=== PATIENT | male | born 1945 | race Caucasian/White ===

== ENCOUNTER → 2018-03-03 | Outpatient (CLI) | payer MEDICARE ==
[2018-03-03 08:46] LABS: Basophils % (A) 0 %; Eosinophils # (A) 0.2 k/uL (0-0.7); Eosinophils % (A) 2 %; HCT 53.6 % (39.0-53.0); Lymphocytes # (A) 1.8 k/uL (1.0-4.8); Lymphocytes % (A) 22 %; MCH 30.1 pg (25.0-35.0); MCHC 31.6 g/dL (31.0-37.0); MCV 95.2 fL (80.0-100.0); Mean Platelet Volume 6.7; Monocytes # (A) 0.7 k/uL (0-1.0); Monocytes % (A) 9 %; Neutrophils # (A) 5.1 k/uL (1.3-7.7); Neutrophils % (A) 63 %; Platelet Count 192 k/uL (150-450); RBC 5.63 m/uL (4.30-5.90); WBC 8.1 k/uL (3.8-10.6)
[2018-03-03 08:57] LABS: ALT 47 U/L (21-72); AST 51 U/L (17-59); Albumin 4.5 g/dL (3.5-5.0); Alkaline Phosphatase 92 U/L (38-126); Anion Gap 9 mmol/L; Blood Urea Nitrogen 11 mg/dL (9-20); Calcium 9.7 mg/dL (8.4-10.2); Carbon Dioxide 27 mmol/L (22-30); Chloride 104 mmol/L (98-107); Glucose 94 mg/dL (74-99); Sodium 140 mmol/L (137-145); Total Bilirubin 1.2 mg/dL (0.2-1.3); Total Protein 8.1 g/dL (6.3-8.2)
[2018-03-03 09:09] LABS: Potassium 4.7 mmol/L (3.5-5.1)
== END ==
LOC: LABWHC1 08:23
PROVIDERS: ATTEND Family Medicine
DX: I48.91 Unspecified atrial fibrillation (principal); E55.9 Vitamin D deficiency, unspecified
CPT/HCPCS: 36415; 80053; 82306; 84443; 85025

== ENCOUNTER → 2018-03-04 | Outpatient (CLI) | payer MEDICARE ==
[2018-03-04 15:06] LABS: T4, Free (Free Thyroxine) 1.48 ng/dL (0.78-2.19)
== END ==
LOC: LABWHC1 13:36
PROVIDERS: ATTEND Internal Medicine Cardiovascular Disease
DX: I48.91 Unspecified atrial fibrillation (principal)
CPT/HCPCS: 36415; 84439; 84481

== ENCOUNTER 2018-03-24 07:45 | Day surgery (SDC) | payer MEDICARE ==
[2018-03-24] MEDS ORDERED: ALPRAZolam 0.25 MG TAB PO PRN (08:14)
[2018-03-24] MEDS ORDERED: NITROGLYCERIN SL TABS 0.4 MG TAB SUBLINGUAL PRN (08:14)
[2018-03-24] MEDS ORDERED: ASPIRIN 325 MG TAB PO STA (08:14)
[2018-03-24] MEDS ORDERED: SODIUM CHLORIDE 0.9% 1,000 ML in EMPTY BAG 1 BAG IV ONE (08:14)
[2018-03-24] MEDS ORDERED: fentaNYL (PF) 50 MCG/ML 2 ML AMP ONE (09:12)
[2018-03-24] MEDS ORDERED: LIDOCAINE 1% INJ 10MG/ML (20 ML MDV) ONE (09:12)
[2018-03-24] MEDS ORDERED: MIDAZOLAM 2 MG/2 ML VIAL ONE (09:12)
[2018-03-24] MEDS ORDERED: IV FLUID CONTINUATION 900 ML IV ONE (09:12)
[2018-03-24] MEDS: MIDAZOLAM 2 MG/2 ML VIAL IVP ONE ×2 (09:40→09:46)
[2018-03-24] MEDS ORDERED: fentaNYL (PF) 50 MCG/ML 2 ML AMP IVP ONE (09:40)
[2018-03-24] MEDS ORDERED: LIDOCAINE 1% (PF) 10MG/ML VIAL SQ ONE (09:45)
[2018-03-24] MEDS ORDERED: IOPAMIDOL-370 50ML BTL INJ ONE (10:10)
[2018-03-24] MEDS ORDERED: IOPAMIDOL-370 125ML BTL INJ ONE (10:12)
[2018-03-24] MEDS ORDERED: RX INFO: IV CONTRAST WAS GIVEN 1 EACH MISC MISCELLANE PRN (10:24)
[2018-03-24] MEDS ORDERED: SODIUM CHLORIDE 0.9% 1,000 ML IV SCH (10:30)
--- NOTE | 2018-03-24 10:33 | CC ---
CARDIAC CATHETERIZATION REPORT INDICATION: Shortness of breath with abnormal stress test. PROCEDURE NOTE: After obtaining informed consent, left heart catheterization and coronary angiogram are performed via the right femoral artery. The left coronary artery was engaged using a size 5 Neil catheter and the right coronary artery was using standard Neil catheters. We used a Glidewire to take the catheters across the infrarenal aorta. An aortogram was performed to assess the ascending aorta. Patient received moderate conscious sedation. Total sedation time was 26 minutes. FINDINGS: 1. HEMODYNAMICS: Left ventricular end-diastolic pressure is 8 to 10 mm. There is no significant gradient across the aortic valve. 2. LEFT VENTRICULOGRAM: Left ventriculogram is not performed. 3. ANGIOGRAPHIC DATA: 4. Left main coronary artery: Left main coronary artery is a normal-sized vessel and is free of stenosis. Divides into left anterior descending coronary artery and circumflex coronary artery. LAD and its branches, circumflex coronary artery and its branches are free of significant stenosis. Right coronary artery is a large dominant vessel that has an eccentric and subselective images were obtained and it did not show significant obstructive CAD. 5. An aortogram was performed and it shows that the ascending aorta is aneurysmally dilated. The maximum dimension is around 4.5 cm. CONCLUSIONS: 1. Normal coronary arteries. 2. Ascending aortic aneurysm. PLAN: The patient will continue with the anticoagulant. He will undergo a CT scan of the chest to accurately assess the ascending aorta. MMETIENNEL / KADIEN: [id number] /
[2018-03-24 11:13] VITALS: RESP 18
[2018-03-24 16:24] VITALS: BP 130/81; PULSE 74; TEMP 98.3
== END 2018-03-24 18:25 | disposition home or self-care (01) ==
LOC: CATHCVL 07:45 → 3OBS 10:20 → CATHCVL 18:25
PROVIDERS: ATTEND Internal Medicine Cardiovascular Disease
DX: I71.2 Thoracic aortic aneurysm, without rupture (principal); R94.39 Abnormal result of other cardiovascular function study; I48.2 Chronic atrial fibrillation; Z79.01 Long term (current) use of anticoagulants; Z79.899 Other long term (current) drug therapy; Z88.0 Allergy status to penicillin
CPT/HCPCS: 93458; C1769 ×3; C1894; J2250; J3010; J2001; Q9967 ×2

== ENCOUNTER → 2018-04-07 | Outpatient (CLI) | payer MEDICARE ==
[2018-04-07 13:27] LABS: Anion Gap 10 mmol/L; Blood Urea Nitrogen 12 mg/dL (9-20); Carbon Dioxide 29 mmol/L (22-30); Chloride 104 mmol/L (98-107); Potassium 5.2 mmol/L (3.5-5.1); Sodium 143 mmol/L (137-145)
[2018-04-07 13:31] LABS: HCT 51.9 % (39.0-53.0); HGB 16.6 gm/dL (13.0-17.5); MCH 30.9 pg (25.0-35.0); MCV 96.5 fL (80.0-100.0); Mean Platelet Volume 6.8; Platelet Count 215 k/uL (150-450); RBC 5.38 m/uL (4.30-5.90); RDW 13.1 % (11.5-15.5); WBC 7.6 k/uL (3.8-10.6)
== END | disposition home or self-care (01) ==
LOC: LABPAT 12:20
PROVIDERS: ATTEND Internal Medicine Cardiovascular Disease
DX: Z01.812 Encounter for preprocedural laboratory examination (principal); R06.02 Shortness of breath; I48.2 Chronic atrial fibrillation
CPT/HCPCS: 36415; 80051; 82565; 84520; 85027

== ENCOUNTER → 2018-04-14 | Outpatient (CLI) | payer MEDICARE ==
--- NOTE | 2018-04-15 08:30 | CT ---
EXAMINATION TYPE: CT angio thor/abd pel aorta DATE OF EXAM: 04/14/2018 COMPARISON: CT abdomen pelvis dated 11/09/2011 HISTORY: thoracic aneurysm w/o rupture CT DLP: 836 mGycm. Automated Exposure Control for Dose Reduction was Utilized. CONTRAST: CT scan of the thorax, abdomen and pelvis is performed with IV Contrast, patient injected with 100 mL of Isovue 370. 3-D reformats were performed at a separate workstation of the [facility], abdomen and pelvis. FINDINGS: LUNGS: There is a 5 mm solid right apical pulmonary nodule on image 17 as well as a subpleural 3 mm p ulmonary nodule on image 13 in the right lung apex. 3 mm right upper lobe pulmonary nodules marked on image 25. Pulmonary nodules measuring 5 mm each are seen on image 38 and 39 with the second on image 39 suspected to be partially calcified. 2 mm right lower lobe pulmonary nodule is marked on image 31 . On the left there is a 3 mm left apical anterior pulmonary nodule marked on image 14. No focal cons olidation is seen within the lungs. Minimal left hemidiaphragm elevation is noted. There is no pleur al effusion or pneumothorax seen. The tracheobronchial tree is patent. MEDIASTINUM: There is mild aneurysmal dilatation of the aortic root measuring 4.1 cm on coronal image 17. The ascending thoracic aorta is also mildly aneurysmal measuring 4.2 cm on image 14. The descend ing thoracic aorta is slightly tortuous but within normal limits measuring 2.8 cm. There is mild athe rosclerosis of the thoracic aorta. There is a conventional three-vessel branch pattern of the aortic arch Very minimal coronary artery calcifications are seen. Pericardial calcification is seen multifocally, possibly from prior pericarditis. No current pericardial effusion is present or pericardial thickeni ng/enhancement. Heart is mildly enlarged. Pretracheal lymph node measures 9 mm, upper limits of normal. Precarinal lymph node is mildly enlarge d measuring 1.2 cm in short axis. No axillary adenopathy is seen. OTHER: Thyroid gland is slightly heterogenous and prominent in size extending to the sternal notch. LIVER/GB: Hepatic parenchyma is diffusely hypoattenuated in comparison to that of the spleen, most co mmonly seen in hepatic steatosis. This finding limits evaluation for hepatic masses. No gross evidenc e of hepatic mass is seen. No intrahepatic biliary ductal dilatation. No cholelithiasis. PANCREAS: No significant abnormality is seen. SPLEEN: No significant abnormality is seen. Previously seen spinal megaly is no longer present. ADRENALS: No significant abnormality is seen. KIDNEYS: Lobulated contour the midpole the right kidney appears similar to exam of 2012. Kidneys enha nce symmetrically without hydronephrosis. Urinary bladder is decompressed and suboptimally evaluated. BOWEL: There is a very small hiatal hernia. Scattered colonic diverticula are seen without pericoloni c fat stranding. LYMPH NODES: No greater than 1cm abdominal or pelvic lymph nodes are appreciated. OSSEOUS STRUCTURES: Moderate degenerative change of the femoral acetabular joints and of the thoracol umbar and lumbosacral spine are seen. Stable probable left iliac bone island is seen on 2012 as well as left femoral head probable bone island. VASCULATURE: There is moderate calcific and noncalcific atheromatous changes of the abdominal aorta. There is no significant ostial stenosis of the celiac artery, superior mesenteric artery, or renal ar teries. [place] appears patent. Suprarenal abdominal aorta is of normal caliber. Infrarenal abdominal aor ta demonstrates ectasia measuring up to 2.5 x 2.5 cm and distal to this measuring only 1.9 x 1.9 cm. Visualized iliac vasculature appears patent in nonaneurysmal. IMPRESSION: 1. Mild aneurysmal dilatation of the aortic root and ascending thoracic aorta and minimal infrarenal abdominal aortic ectasia. 2. Multiple subcentimeter pulmonary nodules for which follow-up CT thorax in 12 months is recommended to establish stability.
== END ==
LOC: RADCTMAIN 06:58
PROVIDERS: ATTEND Internal Medicine Cardiovascular Disease
DX: I71.2 Thoracic aortic aneurysm, without rupture (principal); I77.811 Abdominal aortic ectasia; R91.8 Other nonspecific abnormal finding of lung field; Z88.0 Allergy status to penicillin
CPT/HCPCS: 71275; 74174; Q9967

== ENCOUNTER 2018-04-19 07:13 | Day surgery (SDC) | payer MEDICARE ==
[2018-04-13 11:34] VITALS: BMI 30.1
[~2018-04-19 07:13] MED LIST: SODIUM CHLORIDE 0.9% 1,000 ML IV SCH
[2018-04-19] MEDS ORDERED: LABETALOL 5 MG/ML VIAL MDV ONE (09:00)
[2018-04-19] MEDS ORDERED: PROPOFOL 10 MG/ML 20 ML VIAL IV ONE (09:00)
[2018-04-19] MEDS ORDERED: SODIUM CHLORIDE 0.9% 1,000 ML IV ONE (09:07)
[2018-04-19] MEDS ORDERED: SODIUM CHLORIDE 0.9% 1,000 ML IV SCH (09:30)
[2018-04-19 09:33] VITALS: TEMP 97.5
[2018-04-19 09:44] VITALS: RESP 16
--- NOTE | 2018-04-19 09:54 | ECHOT ---
TRANSESOPHAGEAL ECHOCARDIOGRAM INDICATION: Chronic atrial fibrillation. PROCEDURE NOTE: After obtaining informed consent, transesophageal echocardiogram was performed in a flat position using an Omni plane probe. Local and IV sedation were obtained by the retail planner. The patient tolerated the procedure well without any obvious immediate complications. FINDINGS: 1. Atrial appendage left atrial appendage is free of thrombus. Left atrium, right atrium, right ventricle, left ventricle. There is no thrombus. 2. Left ventricle has normal size, shows mild preserved LV function with an ejection fraction of 50%. 3. Right atrium appears enlarged. 4. Mitral valve shows mild to moderate central mitral regurgitation. 5. Tricuspid valve appears normal. 6. Aortic valve is a 3-leaflet valve. There is no evidence of aortic stenosis or regurgitation. 7. Interatrial septum there is no evidence of [id number] shunt by color-flow Doppler or [id number] shunt by agitated saline contrast study. CONCLUSIONS: No intracardiac thrombus. PLAN: Patient will undergo cardioversion. CARDIOVERSION NOTE: INDICATION: Chronic atrial fibrillation. PROCEDURE NOTE: After obtaining informed consent, electrical cardioversion was performed after the patient had been anesthetized and had received Xarelto for anticoagulation and absence of thrombus was confirmed on a transesophageal echo. He converted to sinus rhythm following a single 300 joule shock and stayed in sinus rhythm. MMODL / IJN: [id number] /
[2018-04-19 11:12] VITALS: BP 134/81; PULSE 68
== END 2018-04-19 11:17 | disposition home or self-care (01) ==
LOC: CATHCVL 07:13
PROVIDERS: ATTEND Internal Medicine Cardiovascular Disease
DX: I48.2 Chronic atrial fibrillation (principal); I71.2 Thoracic aortic aneurysm, without rupture; I34.0 Nonrheumatic mitral (valve) insufficiency; I10 Essential (primary) hypertension; R94.39 Abnormal result of other cardiovascular function study; Z79.01 Long term (current) use of anticoagulants; Z79.82 Long term (current) use of aspirin; Z79.899 Other long term (current) drug therapy; Z88.0 Allergy status to penicillin
CPT/HCPCS: 93312; 93325; 92960; 84132; J2704; 93320

== ENCOUNTER 2018-07-08 11:20 | Inpatient (IN) | payer MEDICARE ==
[2018-07-08] MEDS ORDERED: SODIUM CHLORIDE 0.9% 500 ML 500 ML IV STA (11:50)
[2018-07-08] MEDS ORDERED: HEPARIN SODIUM,PORCINE 5,000 UNIT/ML 1 ML VIAL IV ONE (11:54)
--- NOTE | 2018-07-08 12:02 | ED ---
General Adult HPI - General Chief complaint: Chest Pain Stated complaint: Chest pressure, sob Time Seen by Provider: 07/08/18 11:25 Source: patient, RN notes reviewed Mode of arrival: ambulatory Limitations: no limitations - History of Present Illness Initial comments: This is a 72-year-old male who presents emergency department with past medical history significant for a fibrillation for which she states she was converted and has not had it since. Patient states over the last 2 weeks however he feels as though his atrial fibrillation is back because he is been more short of breath especially with exertion and occasionally feels palpitations per patient states he went to his doctor's office a few days ago and he was told to come to the emergency department because he is back in atrial fibrillation. Patient stated he did not want to come back right away so he didn't but he decided come back today because the shortness of breath is bothering to that degree. Patient denies any chest pain. Patient denies any lightheadedness or dizziness. Patient states she has been having a little bit epigastric abdominal pain occasionally. Patient denies any nausea vomiting or diarrhea. Patient denies any increased swelling to the legs. - Related Data Home Medications Medication Instructions Recorded Confirmed Cholecalciferol [Vitamin D3] 1,000 units PO DAILY 04/14/14 07/08/18 Folic Acid 1 mg PO DAILY 04/13/18 07/08/18 Aspirin EC [Ecotrin] 325 mg PO DAILY 07/08/18 07/08/18 Doxycycline Monohydrate [Monodox] 100 mg PO DAILY 07/08/18 07/08/18 Metoprolol Succinate (ER) [Toprol 25 mg PO DAILY 07/08/18 07/08/18 Xl] Multivitamins, Thera [Multivitamin 1 tab PO DAILY 07/08/18 07/08/18 (formulary)] [place]-3 Fatty Acids/Fish Oil [Fish 1 cap PO DAILY 07/08/18 07/08/18 Oil 1,000 mg Softgel] Allergies Allergy/AdvReac Type Severity Reaction Status Date / Time Penicillins Allergy Severe Anaphylaxis Verified 07/08/18 11:38 Review of Systems ROS Statement: Those systems with pertinent positive or pertinent negative responses have been documented in the HPI. ROS Other: All systems not noted in ROS Statement are negative. Past Medical History Past Medical History: Atrial Fibrillation, Rheumatoid Arthritis (RA) Additional Past Medical History / Comment(s): Borderline hypertension. SOB w/ exertion. History of Any Multi-Drug Resistant Organisms: None Reported Past Surgical History: Adenoidectomy, Tonsillectomy Additional Past Surgical History / Comment(s): Vasectomy. Past Anesthesia/Blood Transfusion Reactions: No Reported Reaction Past Psychological History: No Psychological Hx Reported Smoking Status: Former smoker Past Alcohol Use History: Daily Past Drug Use History: None Reported - Past Family History Father Family Medical History: No Reported History Mother Additional Family Medical History / Comment(s): Parkinsons Disease. General Exam - General Exam Comments Initial Comments: GENERAL: Patient is well-developed and well-nourished. Patient is nontoxic and well- hydrated and is in mild distress. ENT: Neck is soft and supple. No significant lymphadenopathy is noted. Oropharynx is clear. Moist mucous membranes. Neck has full range of motion without eliciting any pain. EYES: The sclera were anicteric and conjunctiva were pink and moist. Extraocular movements were intact and pupils were equal round and reactive to light. Eyelids were unremarkable. PULMONARY: Unlabored respirations. Good breath sounds bilaterally. No audible rales rhonchi or wheezing was noted. CARDIOVASCULAR: Patient has no irregular heart rate ABDOMEN: Soft and nontender with normal bowel sounds. No palpable organomegaly was noted. There is no palpable pulsatile mass. SKIN: Skin is clear with no lesions or rashes and otherwise unremarkable. NEUROLOGIC: Patient is alert and oriented x3. Cranial nerves II through XII are grossly intact. Motor and sensory are also intact. Normal speech, volume and content. Symmetrical smile. MUSCULOSKELETAL: Normal extremities with adequate strength and full range of motion. No lower extremity swelling or edema. No calf tenderness. LYMPHATICS: No significant lymphadenopathy is noted PSYCHIATRIC: Normal psychiatric evaluation. 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 Patient's EKG shows no ST segment elevation or depression or T wave abnormalities are noted. Chest x-ray shows no acute abnormality. I started patient on heparin because of A. fib. I spoke with Dr. Hernández she agreed to admit the patient admitted the patient I consult cardiology. It did not give anything to the patient for his rate was under control in the emergency department. - Lab Data Result diagrams: 07/08/18 12:09 07/08/18 12:09 Lab Results 07/08/18 07/08/18 07/08/18 Range/Units 12:09 12:09 12:09 WBC 6.7 (3.8-10.6) k/uL RBC 5.40 (4.30-5.90) m/uL Hgb 16.9 (13.0-17.5) gm/dL Hct 50.8 (39.0-53.0) % MCV 93.9 (80.0-100.0) fL MCH 31.4 (25.0-35.0) pg MCHC 33.4 (31.0-37.0) g/dL RDW 12.4 (11.5-15.5) % Plt Count 176 (150-450) k/uL Neutrophils % 67 % Lymphocytes % 19 % Monocytes % 8 % Eosinophils % 1 % Basophils % 1 % Neutrophils # 4.4 (1.3-7.7) k/uL Lymphocytes # 1.2 (1.0-4.8) k/uL Monocytes # 0.6 (0-1.0) k/uL Eosinophils # 0.1 (0-0.7) k/uL Basophils # 0.0 (0-0.2) k/uL PT (9.0-12.0) sec INR (<1.2) APTT (22.0-30.0) sec Sodium 140 (137-145) mmol/L Potassium 4.7 (3.5-5.1) mmol/L Chloride 107 (98-107) mmol/L Carbon Dioxide 22 (22-30) mmol/L Anion Gap 11 mmol/L BUN 17 (9-20) mg/dL Creatinine 0.88 (0.66-1.25) mg/dL Est GFR (CKD-EPI)AfAm >90 (>60 ml/min/1.73 sqM) Est GFR (CKD-EPI)NonAf 85 (>60 ml/min/1.73 sqM) Glucose 104 H (74-99) mg/dL Calcium 10.3 H (8.4-10.2) mg/dL Magnesium 1.9 (1.6-2.3) mg/dL Total Bilirubin 1.0 (0.2-1.3) mg/dL AST 42 (17-59) U/L ALT 47 (21-72) U/L Alkaline Phosphatase 95 (38-126) U/L Total Creatine Kinase 59 (55-170) U/L CK-MB (CK-2) 1.1 (0.0-2.4) ng/mL CK-MB (CK-2) Rel Index 1.9 Troponin I <0.012 (0.000-0.034) ng/mL NT-Pro-B Natriuret Pep pg/mL Total Protein 7.6 (6.3-8.2) g/dL Albumin 4.4 (3.5-5.0) g/dL Amylase 46 (30-110) U/L Lipase 192 (23-300) U/L 07/08/18 07/08/18 Range/Units 12:09 12:09 WBC (3.8-10.6) k/uL RBC (4.30-5.90) m/uL Hgb (13.0-17.5) gm/dL Hct (39.0-53.0) % MCV (80.0-100.0) fL MCH (25.0-35.0) pg MCHC (31.0-37.0) g/dL RDW (11.5-15.5) % Plt Count (150-450) k/uL Neutrophils % % Lymphocytes % % Monocytes % % Eosinophils % % Basophils % % Neutrophils # (1.3-7.7) k/uL Lymphocytes # (1.0-4.8) k/uL Monocytes # (0-1.0) k/uL Eosinophils # (0-0.7) k/uL Basophils # (0-0.2) k/uL PT 11.1 (9.0-12.0) sec INR 1.1 (<1.2) APTT 25.1 (22.0-30.0) sec Sodium (137-145) mmol/L Potassium (3.5-5.1) mmol/L Chloride (98-107) mmol/L Carbon Dioxide (22-30) mmol/L Anion Gap mmol/L BUN (9-20) mg/dL Creatinine (0.66-1.25) mg/dL Est GFR (CKD-EPI)AfAm (>60 ml/min/1.73 sqM) Est GFR (CKD-EPI)NonAf (>60 ml/min/1.73 sqM) Glucose (74-99) mg/dL Calcium (8.4-10.2) mg/dL Magnesium (1.6-2.3) mg/dL Total Bilirubin (0.2-1.3) mg/dL AST (17-59) U/L ALT (21-72) U/L Alkaline Phosphatase (38-126) U/L Total Creatine Kinase (55-170) U/L CK-MB (CK-2) (0.0-2.4) ng/mL CK-MB (CK-2) Rel Index Troponin I (0.000-0.034) ng/mL NT-Pro-B Natriuret Pep 2270 pg/mL Total Protein (6.3-8.2) g/dL Albumin (3.5-5.0) g/dL Amylase (30-110) U/L Lipase (23-300) U/L Disposition Clinical Impression: A-fib Disposition: ADMITTED IP TO THIS HOSP Referrals: Romel Jhaveri MD [Primary Care Provider] - 1-2 days Time of Disposition: 13:07
[2018-07-08 12:31] LABS: Basophils % (A) 1 %; Eosinophils # (A) 0.1 k/uL (0-0.7); Eosinophils % (A) 1 %; HCT 50.8 % (39.0-53.0); HGB 16.9 gm/dL (13.0-17.5); Lymphocytes # (A) 1.2 k/uL (1.0-4.8); Lymphocytes % (A) 19 %; MCH 31.4 pg (25.0-35.0); MCHC 33.4 g/dL (31.0-37.0); MCV 93.9 fL (80.0-100.0); Mean Platelet Volume 7.5; Monocytes # (A) 0.6 k/uL (0-1.0); Monocytes % (A) 8 %; Neutrophils # (A) 4.4 k/uL (1.3-7.7); Neutrophils % (A) 67 %; Platelet Count 176 k/uL (150-450); RDW 12.4 % (11.5-15.5); WBC 6.7 k/uL (3.8-10.6)
[2018-07-08] MEDS: HEPARIN SOD,PORK IN 0.45% NACL 25,000 UNIT in 0.45% NACL 1 250ML.BAG IV SCH (12:38)
[2018-07-08 12:39] LABS: INR 1.1 (<1.2); Partial Thromboplastin Time 25.1 sec (22.0-30.0); Prothrombin Time 11.1 sec (9.0-12.0)
--- NOTE | 2018-07-08 12:39 | XR ---
EXAMINATION TYPE: XR chest 2V DATE OF EXAM: 07/08/2018 COMPARISON: Prior chest x-ray 11/15/2011 HISTORY: Chest pain and shortness of breath TECHNIQUE: Frontal and lateral views of the chest are obtained. FINDINGS: There are overlying cardiac leads. Increased lung volumes may be indicative of underlying C OPD. Flowing anterior osteophytes with disc preservation in the mid to lower thoracic spine compatibl e with underlying diffuse idiopathic skeletal hyperostosis. Minimal blunting the costophrenic angle o n the right is noted. There is no focal air space opacity, pleural effusion, or pneumothorax seen. T he cardiac silhouette size is within normal limits. The osseous structures are intact. IMPRESSION: No acute cardiopulmonary process.
[2018-07-08 12:41] LABS: ALT 47 U/L (21-72); AST 42 U/L (17-59); Albumin 4.4 g/dL (3.5-5.0); Alkaline Phosphatase 95 U/L (38-126); Amylase 46 U/L (30-110); Anion Gap 11 mmol/L; Blood Urea Nitrogen 17 mg/dL (9-20); Calcium 10.3 mg/dL (8.4-10.2); Carbon Dioxide 22 mmol/L (22-30); Chloride 107 mmol/L (98-107); Glucose 104 mg/dL (74-99); Lipase 192 U/L (23-300); Magnesium 1.9 mg/dL (1.6-2.3); Potassium 4.7 mmol/L (3.5-5.1); Sodium 140 mmol/L (137-145); Total Protein 7.6 g/dL (6.3-8.2)
[2018-07-08 12:54] LABS: Creatine Kinase 59 U/L (55-170)
[2018-07-08 13:08] LABS: Creatine Kinase MB 1.1 ng/mL (0.0-2.4); Troponin I <0.012 ng/mL (0.000-0.034)
[2018-07-08] MEDS ORDERED: NITROGLYCERIN SL TABS 0.4 MG TAB SUBLINGUAL PRN (13:17)
[2018-07-08 14:20] VITALS: RESP 18
--- NOTE | 2018-07-08 16:33 | P.HPIM ---
History of Present Illness H&P Date: 07/08/18 Chief Complaint: Chest pain and palpitations This is a pleasant 72-year-old gentleman patient of Dr. Jhaveri. Dr. Soto He has underlying history of paroxysmal atrial fibrillation requiring cardioversion in April 19 2018. He was off anticoagulation was placed on it transiently for the carbonation, he completed 3 weeks of anticoagulation at that time. Thereafter was placed on aspirin. Patient comes in now with chest pain for which she was evaluated at Dr. Jhaveri's office 2 days ago for the chest pain and palpitations,, he was recommended to come in the emergency room for evaluation patient refused to do this, his had chest pain off and on for the past 2 weeks, he has seen Dr. Saenz for 3 lung spots, all subcentimeter and was recommended 1 year regimen for follow-up., He saw Dr. Soto yesterday, also recommended to be back in emergency room for abnormal EKG and his rapid ventricular rate, patient did not show up until this morning chest pain recurs and he has off and on rapid heart rate currently in sinus rhythm when seen in emergency room. His last cardiac cath was seen 03/24/2018, with normal coronary arteries, has ascending aortic aneurysm CT of the chest to evaluate thoracic aorta 4.2 cm ascending thoracic aorta, aortic Root dilation 4.1 cm Emergency room he currently is rate controlled heart rate between 80-100 currently on metoprolol, Cardizem was given, however with his atrial fibrillation, IV heparin was started, oral anticoagulation to be done in the morning, might need another cardioversion. Patient is drinking at least 6 beers daily basis, and 2 cups of coffee on a daily basis. Consult was made to cardiology, Review of Systems Constitutional: Reports as per HPI, Denies anorexia, Denies chills, Denies chronic headaches, Denies chronic pain, Denies daytime sleepiness, Denies fatigue, Denies fever, Denies lethargy, Denies malaise, Denies night sweats, Denies poor appetite, Denies sweats, Denies weakness, Denies weight gain, Denies weight loss Ears, nose, mouth and throat: Reports as per HPI Cardiovascular: Reports as per HPI, Reports chest pain, Reports irregular heart beat, Reports palpitations, Reports rapid heart beat, Denies claudication, Denies decreased exercise tolerance, Denies dyspnea on exertion, Denies edema, Denies high blood pressure, Denies leg edema, Denies lightheadedness, Denies orthopnea, Denies paroxysmal nocturnal dyspnea, Denies phlebitis, Denies shortness of breath, Denies syncope Respiratory: Reports as per HPI, Denies congestion, Denies cough, Denies cough with sputum, Denies dyspnea, Denies excessive sputum, Denies hemoptysis, Denies home oxygen, Denies pain, Denies pain on inspiration, Denies pleurisy, Denies respiratory infections, Denies sleep apnea, Denies snoring, Denies wheezing Gastrointestinal: Reports as per HPI, Denies abdominal pain, Denies belching, Denies bloating, Denies BRBPR, Denies change in bowel habits, Denies coffee ground emesis, Denies constipation, Denies diarrhea, Denies dyspepsia, Denies early satiety, Denies excessive gas, Denies heartburn, Denies hematemesis, Denies hematochezia, Denies indigestion, Denies jaundice, Denies lactose intolerance, Denies loss of appetite, Denies melena, Denies nausea, Denies vomiting Genitourinary: Reports as per HPI, Denies decreased libido, Denies difficulties fathering child, Denies discharge, Denies dysuria, Denies erectile dysfunction, Denies flank pain, Denies genital pain, Denies genital sores, Denies hematuria, Denies impotence, Denies incontinence, Denies kidney stones, Denies nocturia, Denies polyuria, Denies testicular lump, Denies testicular pain, Denies urinary frequency, Denies urinary hesitancy, Denies urinary retention Musculoskeletal: Reports as per HPI, Denies arm numbness/tingling, Denies atrophy, Denies fractures, Denies frequent falls, Denies gait dysfunction, Denies hot joints, Denies leg numbness/tingling, Denies limitation of motion, Denies loss of height, Denies low back pain, Denies morning stiffness, Denies muscle cramps, Denies muscle weakness, Denies myalgias, Denies neck pain, Denies neck stiffness, Denies prior amputations, Denies redness of joints, Denies shooting arm pain, Denies shooting leg pain Integumentary: Reports as per HPI, Denies acne, Denies boils, Denies brittle nails, Denies change in hair/nails, Denies color changes, Denies darkening of skin, Denies depigmentation, Denies dryness, Denies foot/leg ulcers, Denies growths, Denies hirsutism, Denies lesions, Denies onychomycosis, Denies pruritus , Denies rash, Denies sores, Denies striae, Denies unusual bruising, Denies wounds Neurological: Reports as per HPI, Denies aphasia, Denies ataxia, Denies balance difficulties, Denies burning pain, Denies change in mentation, Denies change in smell/taste, Denies change in speech, Denies confusion, Denies convulsions, Denies double vision, Denies gait dysfunction, Denies head injury, Denies headaches, Denies hearing difficulties, Denies lack of coordination, Denies loss of vision, Denies memory loss, Denies migraines, Denies motor disturbance, Denies numbness, Denies paralysis, Denies paresthesias, Denies seizures, Denies sensory deficit, Denies spasticity, Denies syncope, Denies tic, Denies tingling , Denies transient paralysis, Denies tremors, Denies vertigo, Denies weakness, Denies visual changes Psychiatric: Reports as per HPI, Denies anhedonia, Denies anxiety, Denies anxiety attacks, Denies change in appetite, Denies change in libido, Denies change in sleep habits, Denies confusion, Denies depression, Denies difficulty concentrating, Denies disorientation, Denies hallucinations, Denies hopelessness , Denies hypersomnia, Denies insomnia, Denies irritability, Denies memory loss, Denies mood swings, Denies paranoia, Denies sadness/tearfulness, Denies sleep disturbances, Denies suicidal ideation Endocrine: Reports as per HPI, Denies cold intolerance, Denies deepening of the voice, Denies excessive sweating, Denies excessive thirst, Denies fatigue, Denies flushing, Denies heat intolerance, Denies high blood sugars, Denies increase in ring/shoe/hat size, Denies low blood sugars, Denies nocturia, Denies palpitations, Denies polydipsia, Denies polyphagia, Denies polyuria, Denies proptosis, Denies recent glucocorticoid use, Denies thyroid mass, Denies weight change Hematologic/Lymphatic: Reports as per HPI, Denies easy bleeding, Denies easy bruising, Denies lymphadenopathy, Denies lymphedema, Denies thrombophilia Allergic/Immunologic: Reports as per HPI, Denies allergic rhinitis, Denies anaphylaxis, Denies angioedema, Denies gluten intolerance, Denies persistent infections, Denies seasonal allergies, Denies urticaria, Denies wheezing Past Medical History Past Medical History: Atrial Fibrillation, Hyperlipidemia, Rheumatoid Arthritis (RA) Additional Past Medical History / Comment(s): Pt states his blood pressure is only elevated while in the doctor's office or hospital-it is normal when he monitors it at home, rheumatic fever twice as a child, afib with successful cardioversion in March,, "I drink too much.", recent sinus infection/ sore throat. History of Any Multi-Drug Resistant Organisms: None Reported Past Surgical History: Adenoidectomy, Heart Catheterization, Tonsillectomy Additional Past Surgical History / Comment(s): 04/19/18 cardioversion, normal cardiac cath in 2018, vasectomy, colonoscopy. Past Anesthesia/Blood Transfusion Reactions: No Reported Reaction Past Psychological History: No Psychological Hx Reported Smoking Status: Former smoker Past Alcohol Use History: Daily (6 beers daily) - Past Family History Father History Unknown: Yes ( suicide age 42) Family Medical History: No Reported History Additional Family Medical History / Comment(s): Father was healthy. Mother History Unknown: Yes (Parkinson's) Additional Family Medical History / Comment(s): Parkinsons Disease. Brother(s) Family Medical History: Cancer (Prostate cancer) Sister(s) Family Medical History: Cancer (Pancreatic cancer), Coronary Artery Disease (CAD ) Daughter(s) Family Medical History: No Reported History Son(s) Family Medical History: No Reported History Medications and Allergies Home Medications Medication Instructions Recorded Confirmed Type Cholecalciferol [Vitamin D3] 1,000 units PO DAILY 04/14/14 07/08/18 History Folic Acid 1 mg PO DAILY 04/13/18 07/08/18 History Aspirin EC [Ecotrin] 325 mg PO DAILY 07/08/18 07/08/18 History Doxycycline Monohydrate [Monodox] 100 mg PO DAILY 07/08/18 07/08/18 History Metoprolol Succinate (ER) [Toprol 25 mg PO DAILY 07/08/18 07/08/18 History Xl] Multivitamins, Thera [Multivitamin 1 tab PO DAILY 07/08/18 07/08/18 History (formulary)] [place]-3 Fatty Acids/Fish Oil [Fish 1 cap PO DAILY 07/08/18 07/08/18 History Oil 1,000 mg Softgel] Allergies Allergy/AdvReac Type Severity Reaction Status Date / Time Penicillins Allergy Severe Anaphylaxis Verified 07/08/18 11:38 Physical Exam Vitals: Vital Signs Temp Pulse Pulse Resp BP Pulse Ox 07/08/18 14:13 78 18 142/76 99 07/08/18 12:15 82 16 148/99 99 07/08/18 12:14 77 07/08/18 11:23 98.6 F 82 18 165/96 99 Intake and Output 07/08/18 07/08/18 07/08/18 06:59 14:59 22:59 Other: Weight 92.986 kg - Constitutional General appearance: cooperative, no acute distress, obese - EENT Eyes: anicteric sclerae, EOMI, PERRLA, dentition normal ENT: hearing grossly normal, NA/AT, normal oropharynx - Neck Neck: normal ROM - Respiratory Respiratory: bilateral: CTA, negative: diminished, dullness, rales, rhonchi - Cardiovascular Rhythm: irregularly irregular Heart sounds: normal: S1, S2 Abnormal Heart Sounds: no systolic murmur, no diastolic murmur, no rub, no S3 Gallop, no S4 Gallop, no click, no other - Gastrointestinal General gastrointestinal: normal bowel sounds, soft - Integumentary Integumentary: normal, normal turgor - Neurologic Neurologic: CNII-XII intact - Musculoskeletal Musculoskeletal: gait normal, strength equal bilaterally - Psychiatric Psychiatric: A&O x's 3, appropriate affect, intact judgment & insight Results CBC & Chem 7: 07/08/18 12:09 07/08/18 12:09 Labs: Abnormal Lab Results - Last 24 Hours (Table) 07/08/18 Range/Units 12:09 Glucose 104 H (74-99) mg/dL Calcium 10.3 H (8.4-10.2) mg/dL Laboratory Results WBC 6.7 k/uL (3.8-10.6) 07/08/18 12:09 RBC 5.40 m/uL (4.30-5.90) 07/08/18 12:09 Hgb 16.9 gm/dL (13.0-17.5) 07/08/18 12:09 Hct 50.8 % (39.0-53.0) 07/08/18 12:09 MCV 93.9 fL (80.0-100.0) 07/08/18 12:09 MCH 31.4 pg (25.0-35.0) 07/08/18 12:09 MCHC 33.4 g/dL (31.0-37.0) 07/08/18 12:09 RDW 12.4 % (11.5-15.5) 07/08/18 12:09 Plt Count 176 k/uL (150-450) 07/08/18 12:09 Neutrophils % 67 % 07/08/18 12:09 Lymphocytes % 19 % 07/08/18 12:09 Monocytes % 8 % 07/08/18 12:09 Eosinophils % 1 % 07/08/18 12:09 Basophils % 1 % 07/08/18 12:09 Neutrophils # 4.4 k/uL (1.3-7.7) 07/08/18 12:09 Lymphocytes # 1.2 k/uL (1.0-4.8) 07/08/18 12:09 Monocytes # 0.6 k/uL (0-1.0) 07/08/18 12:09 Eosinophils # 0.1 k/uL (0-0.7) 07/08/18 12:09 Basophils # 0.0 k/uL (0-0.2) 07/08/18 12:09 PT 11.1 sec (9.0-12.0) 07/08/18 12:09 INR 1.1 (<1.2) 07/08/18 12:09 APTT 25.1 sec (22.0-30.0) 07/08/18 12:09 Sodium 140 mmol/L (137-145) 07/08/18 12:09 Potassium 4.7 mmol/L (3.5-5.1) 07/08/18 12:09 Chloride 107 mmol/L (98-107) 07/08/18 12:09 Carbon Dioxide 22 mmol/L (22-30) 07/08/18 12:09 Anion Gap 11 mmol/L 07/08/18 12:09 BUN 17 mg/dL (9-20) 07/08/18 12:09 Creatinine 0.88 mg/dL (0.66-1.25) 07/08/18 12:09 Est GFR (CKD-EPI)AfAm >90 (>60 ml/min/1.73 sqM) 07/08/18 12:09 Est GFR (CKD-EPI)NonAf 85 (>60 ml/min/1.73 sqM) 07/08/18 12:09 Glucose 104 mg/dL (74-99) H 07/08/18 12:09 Calcium 10.3 mg/dL (8.4-10.2) H 07/08/18 12:09 Magnesium 1.9 mg/dL (1.6-2.3) 07/08/18 12:09 Total Bilirubin 1.0 mg/dL (0.2-1.3) 07/08/18 12:09 AST 42 U/L (17-59) 07/08/18 12:09 ALT 47 U/L (21-72) 07/08/18 12:09 Alkaline Phosphatase 95 U/L (38-126) 07/08/18 12:09 Total Creatine Kinase 59 U/L (55-170) 07/08/18 12:09 CK-MB (CK-2) 1.1 ng/mL (0.0-2.4) 07/08/18 12:09 CK-MB (CK-2) Rel Index 1.9 07/08/18 12:09 Troponin I <0.012 ng/mL (0.000-0.034) 07/08/18 12:09 NT-Pro-B Natriuret Pep 2270 pg/mL 07/08/18 12:09 Total Protein 7.6 g/dL (6.3-8.2) 07/08/18 12:09 Albumin 4.4 g/dL (3.5-5.0) 07/08/18 12:09 Amylase 46 U/L (30-110) 07/08/18 12:09 Lipase 192 U/L (23-300) 07/08/18 12:09 Thrombosis Risk Factor Assmnt - DVT/VTE Prophylaxis DVT/VTE Prophylaxis: Pharmacologic Prophylaxis ordered - Choose All That Apply Any of the Below Risk Factors Present?: Yes Each Factor Represents 1 point: Obesity (BMI >25) Other Risk Factors: Yes Each Risk Factor Represents 2 Points: Age 61-74 years Other congenital or acquired thrombophilia - If yes, enter type in comment: No Thrombosis Risk Factor Assessment Total Risk Factor Score: 3 Thrombosis Risk Factor Assessment Level: Moderate Risk Assessment and Plan Plan: Paroxysmal atrial fibrillation currently in A. fib, recent electrical cardioversion in 04/19/2018, patient will be seen consultation by cardiology, currently rate controlled, heparin IV will be started, and then thereafter oral factor X a inhibition to allow for cardioversion if patient would not have spontaneous conversion. He does have a [id number] score of 1. Patient also was counseled regarding triggers for atrial fibrillation including alcohol, and caffeine. Continue on metoprolol 25 mg ER daily 2. Daily alcohol intake of 6 beers per day, see Web protocol, 3. Borderline Hypertension currently persistent elevated possibly situational, blood pressure between 130 to 157, but considering maybe decided to be started while on this admission, unknown home blood pressure readings 4. Subcentimeter pulmonary nodule, followed outpatient with pulmonary, recently studied 5. Ascending aortic aneurysm 4.2 cm recently studied, continue on monitoring as an outpatient 6. 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
[2018-07-08 19:27] LABS: Creatine Kinase 52 U/L (55-170)
[2018-07-08] MEDS ORDERED: LORazepam 2 MG/ML INJ IV PRN ×3 (19:31)
[2018-07-08] MEDS ORDERED: THIAMINE 100 MG/ML 2 ML VIAL IM STA (19:31)
[2018-07-08 19:41] LABS: Troponin I <0.012 ng/mL (0.000-0.034)
[2018-07-08] MEDS: PANTOPRAZOLE 40 MG/10 ML VIAL IVP SCH (19:47)
[2018-07-08] MEDS ORDERED: HEPARIN SODIUM,PORCINE 5,000 UNIT/ML 1 ML VIAL IV PRN (21:19)
[2018-07-09 00:58] LABS: Creatine Kinase MB 0.9 ng/mL (0.0-2.4); Troponin I 0.013 ng/mL (0.000-0.034)
[2018-07-09 04:50] LABS: Cholesterol 226 mg/dL (<200); HDL Cholesterol 88 mg/dL (40-60); LDL Cholesterol,Calculated 118 mg/dL (0-99); Triglycerides 101 mg/dL (<150)
[2018-07-09] MEDS: PANTOPRAZOLE 40 MG/10 ML VIAL IVP SCH (08:34)
[2018-07-09] MEDS: HEPARIN SOD,PORK IN 0.45% NACL 25,000 UNIT in 0.45% NACL 1 250ML.BAG IV SCH (08:38)
[2018-07-09] MEDS ORDERED: DOXYCYCLINE 100 MG CAP PO SCH (09:00)
[2018-07-09] MEDS ORDERED: NON-FORMULARY DRUG (Aspirin Ec 325 MG) PO SCH (09:00)
[2018-07-09] MEDS ORDERED: METOPROLOL SUCCINATE (ER) 25 MG TAB.ER.24H PO SCH (09:00)
[2018-07-09] MEDS ORDERED: APIXABAN 5 MG TAB PO SCH (09:00)
[2018-07-09] MEDS ORDERED: ASPIRIN 325 MG TAB PO SCH (09:00)
[2018-07-09] MEDS ORDERED: AMIODARONE 200 MG TAB PO SCH (09:00)
--- NOTE | 2018-07-09 09:21 | CONS ---
CONSULTATION CHIEF COMPLAINT: Atrial fibrillation. Russel is a 72-year-old gentleman with history of paroxysmal atrial fibrillation who underwent cardioversion by me in March of 2018, presented to my office yesterday with palpitations and was found to be in atrial fibrillation. At the time of my evaluation, patient is free of chest pain, difficulty in breathing or sustained palpitations. Heart rate is better controlled in the 60s. On his admission, he was around 97 beats per minute. His lab work had been negative. Cardiac enzymes are normal. The patient is on IV heparin. I am going to start him on oral amiodarone, start him on Eliquis and watch him overnight and discharge him home tomorrow. I will attempt another cardioversion on him after he had been in adequate anticoagulation and has been on Cordarone. I will stop the metoprolol at this time as the patient has had bradycardia in the past. If he does not convert on amiodarone, I will do cardioversion. PAST MEDICAL HISTORY: Past medical history is significant for paroxysmal atrial fibrillation. MEDICATIONS: Medications at home include aspirin, doxycycline, and fish oil. ALLERGIES: Allergic to PENICILLIN. FAMILY HISTORY: Family history is negative for premature coronary artery disease. SOCIAL HISTORY: Negative for current smoking, EtOH abuse, or drug abuse. REVIEW OF SYSTEMS: HEENT is unremarkable. CARDIAC: As described above. RESPIRATORY: Negative. GI: Negative. GENITOURINARY: Negative. ALLERGY IMMUNOLOGY: Negative. SKIN: Negative. MUSCULOSKELETAL: Negative. ENDOCRINE: Negative. DERM: Negative. CONSTITUTIONAL: Negative. ONCOLOGICAL: Negative. Rest of the system review is not relevant. PHYSICAL EXAMINATION: On exam, patient is comfortable at rest. Vital signs are stable. There is no jugular venous distention. Carotid upstroke is normal. There is no bruit. Chest exam reveals good air entry bilaterally. Heart exam reveals first and second heart sounds, irregular rhythm. No murmur. Abdomen is soft, nontender. Examination of extremities did not reveal any edema. Peripheral pulses are felt. FLOOR TECH exam did not reveal focal neurological deficits. LABS: Labs show that the hemoglobin is 16.9, potassium is 4.7 creatinine is 0.8. Three sets of troponins are negative. Total cholesterol is 226, LDL is 118, HDL is 88. ASSESSMENT: Persistent atrial fibrillation. PLAN: I will start the patient on amiodarone, Eliquis, discharge home tomorrow and after patient had been on amiodarone for adequate length of time, I will do another attempt at cardioversion. AMAIRANI / IJN: [id number] /
--- NOTE | 2018-07-09 11:29 | ECHOF ---
Referral Reason:afib MEASUREMENTS -------- HEIGHT: 180.3 cm WEIGHT: 94.3 kg BP: 109/67 RVIDd: 3.2 cm (< 3.3) IVSd: 1.2 cm (0.6 - 1.1) LVIDd: 4.4 cm (3.9 - 5.3) LVPWd: 1.4 cm (0.6 - 1.1) IVSs: 1.5 cm LVIDs: 2.8 cm LVPWs: 2.3 cm LAESV Index (A-L): 35.11 ml/m Ao Diam: 3.1 cm (2.0 - 3.7) AV Cusp: 2.2 cm (1.5 - 2.6) LA Diam: 4.5 cm (2.7 - 3.8) RAP: 5.00 mmHg RVSP: 20.61 mmHg FINDINGS -------- Atrial fibrillation. This was a technically adequate study. The left ventricular size is normal. There is mild concentric left ventricular hypertrophy. Overa ll left ventricular systolic function is normal with, an EF between 55 - 60 %. The right ventricle is normal in size. LA is moderately dilated 34-39 ml/m2 The right atrium is normal in size. There is mild aortic valve sclerosis. The mitral valve leaflets are mildly thickened. Mild mitral regurgitation is present. Mild tricuspid regurgitation present. There is no evidence of pulmonary hypertension. The right v entricular systolic pressure, as measured by Doppler, is 20.61mmHg. There is no pulmonic regurgitation present. The aortic root size is normal. IVC Not well visulized. There is no pericardial effusion. CONCLUSIONS -------- 1. Atrial fibrillation. 2. This was a technically adequate study. 3. The left ventricular size is normal. 4. There is mild concentric left ventricular hypertrophy. 5. Overall left ventricular systolic function is normal with, an EF between 55 - 60 %. 6. The right ventricle is normal in size. 7. LA is moderately dilated 34-39 ml/m2 8. There is mild aortic valve sclerosis. 9. The mitral valve leaflets are mildly thickened. 10. Mild mitral regurgitation is present. 11. Mild tricuspid regurgitation present. 12. There is no evidence of pulmonary hypertension. 13. There is no pulmonic regurgitation present. 14. The aortic root size is normal. 15. IVC Not well visulized. 16. There is no pericardial effusion. TOWER EQUIPMENT REPAIRER: Esther Modi RDCS
[2018-07-09 12:00] VITALS: BP 147/88; PULSE 66; TEMP 97.8
[2018-07-09] MEDS ORDERED: THIAMINE 100 MG TAB PO SCH (12:00)
[2018-07-09] MEDS ORDERED: LOSARTAN 25 MG TAB PO SCH (12:15)
--- NOTE | 2018-07-09 13:29 | P.DS ---
Providers Date of admission: 07/08/18 13:17 Expected date of discharge: 07/09/18 Attending physician: Odette Hernández Consults: 07/08/18 13:17 Consult Physician Urgent Consulting Provider: [facility] Consult Reason/Comments: A. fib recurrent Do you want consulting provider notified?: Yes Primary care physician: Romel Perez freddy [facility] Course: This is a pleasant 72-year-old gentleman patient of Dr. Jhaveri. Dr. Soto He has underlying history of paroxysmal atrial fibrillation requiring cardioversion in April 19 2018. He was off anticoagulation was placed on it transiently for the carbonation, he completed 3 weeks of anticoagulation at that time. Thereafter was placed on aspirin. Patient comes in now with chest pain for which he was evaluated at Dr. Jhaveri's office 2 days ago for the chest pain and palpitations, he was recommended to come in the emergency room for evaluation patient refused to do this, his had chest pain off and on for the past 2 weeks, he has seen Dr. Saenz for 3 lung spots, all subcentimeter and was recommended 1 year regimen for follow-up. He saw Dr. Soto yesterday, also recommended to be back in emergency room for abnormal EKG and his rapid ventricular rate, patient did not show up until this morning chest pain recurs and he has off and on rapid heart rate currently in sinus rhythm when seen in emergency room. His last cardiac cath was seen 03/24/2018, with normal coronary arteries, has ascending aortic aneurysm CT of the chest to evaluate thoracic aorta 4.2 cm ascending thoracic aorta, aortic Root dilation 4.1 cm Emergency room he currently is rate controlled heart rate between 80-100 currently on metoprolol, Cardizem was given, however with his atrial fibrillation, IV heparin was started, oral anticoagulation to be done in the morning, might need another cardioversion. Patient is drinking at least 6 beers daily basis, and 2 cups of coffee on a daily basis. Consult was made to cardiology, 07/09: Patient has been afebrile, heart rate running in the 60s, blood pressure 147/88, pulse ox 97% on room air. Patient has been seen by cardiology with recommendations for amiodarone and eliquis. Due to elevated blood pressure readings, Cozaar will be added. His heart rate is currently controlled, atrial fibrillation. Plan to monitor until this evening and possible discharge later today. Discharge diagnoses: 1. Paroxysmal atrial fibrillation currently in A. fib, recent electrical cardioversion in 04/19/2018, 2. Daily alcohol intake of 6 beers per day 3. Hypertension 4. Subcentimeter pulmonary nodule, followed outpatient with pulmonary, recently studied 5. Ascending aortic aneurysm 4.2 cm recently studied, continue on monitoring as an outpatient 6. 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 Madelin Martinez nurse practitioner acting as scribe for signing physician. Patient Condition at Discharge: Good Plan - Discharge Summary Discharge Rx Participant: No New Discharge Prescriptions: New Apixaban [Eliquis] 5 mg PO BID #60 tab Aspirin 81 mg PO DAILY #0 chew Thiamine [Vitamin B-1] 100 mg PO BID@1200,1700 tab Amiodarone [Cordarone] 400 mg PO BID #60 tab Losartan [Cozaar] 25 mg PO DAILY #30 tab Continue Cholecalciferol [Vitamin D3] 1,000 units PO DAILY Folic Acid 1 mg PO DAILY Doxycycline Monohydrate [Monodox] 100 mg PO DAILY [place]-3 Fatty Acids/Fish Oil [Fish Oil 1,000 mg Softgel] 1 cap PO DAILY Multivitamins, Thera [Multivitamin (formulary)] 1 tab PO DAILY Discontinued Metoprolol Succinate (ER) [Toprol Xl] 25 mg PO DAILY Aspirin EC [Ecotrin] 325 mg PO DAILY Discharge Medication List Cholecalciferol [Vitamin D3] 1,000 units PO DAILY 04/14/14 [History] Folic Acid 1 mg PO DAILY 04/13/18 [History] Doxycycline Monohydrate [Monodox] 100 mg PO DAILY 07/08/18 [History] Multivitamins, Thera [Multivitamin (formulary)] 1 tab PO DAILY 07/08/18 [History ] [place]-3 Fatty Acids/Fish Oil [Fish Oil 1,000 mg Softgel] 1 cap PO DAILY [History] Amiodarone [Cordarone] 400 mg PO BID #60 tab 07/09/18 [Rx] Apixaban [Eliquis] 5 mg PO BID #60 tab 07/09/18 [Rx] Aspirin 81 mg PO DAILY #0 chew 07/09/18 [Rx] Losartan [Cozaar] 25 mg PO DAILY #30 tab 07/09/18 [Rx] Thiamine [Vitamin B-1] 100 mg PO BID@1200,1700 tab 07/09/18 [Rx] Follow up Appointment(s)/Referral(s): Romel Jhaveri MD [Primary Care Provider] - 07/19/18 8:30 am Keyshawn Soto MD [STAFF PHYSICIAN] - 08/05/18 1:30 pm Patient Instructions/Handouts: A-fib (Atrial Fibrillation) (DC), Safe Use of Anticoagulants (DC) Activity/Diet/Wound Care/Special Instructions: Patient will need amiodarone dose adjusted in one month. Discharge Disposition: HOME SELF-CARE
[2018-07-10] MEDS ORDERED: PANTOPRAZOLE 40 MG TABLET PO SCH (07:30)
[2018-07-10] MEDS ORDERED: ASPIRIN 81 MG PO SCH (09:00)
[2018-08-09] MEDS ORDERED: AMIODARONE 200 MG TAB PO SCH (09:00)
== END 2018-07-09 15:20 | disposition home or self-care (01) | DRG 310 ==
LOC: EC 11:20 → 3SCARD 13:17
PROVIDERS: ADMIT Family Medicine; ATTEND Family Medicine
DX: I48.0 Paroxysmal atrial fibrillation (principal); I71.2 Thoracic aortic aneurysm, without rupture; M06.9 Rheumatoid arthritis, unspecified; K29.20 Alcoholic gastritis without bleeding; I10 Essential (primary) hypertension; E78.5 Hyperlipidemia, unspecified; E66.9 Obesity, unspecified; Z68.29 Body mass index [BMI] 29.0-29.9, adult; R91.1 Solitary pulmonary nodule; Z79.82 Long term (current) use of aspirin; Z79.899 Other long term (current) drug therapy; Z98.52 Vasectomy status; Z71.3 Dietary counseling and surveillance; Z87.891 Personal history of nicotine dependence; Z86.19 Personal history of other infectious and parasitic diseases; Z72.89 Other problems related to lifestyle; Z88.0 Allergy status to penicillin; Z82.0 Family history of epilepsy and other diseases of the nervous system; Z81.8 Family history of other mental and behavioral disorders; Z82.49 Family history of ischemic heart disease and other diseases of the circulatory system; Z80.42 Family history of malignant neoplasm of prostate; Z80.0 Family history of malignant neoplasm of digestive organs
CPT/HCPCS: 36415; 71046; 80053; 80061; 82150; 82550; 82553; 83690; 83735; 83880; 84443; 84484; 85025; 85610; 85730; 86301; 93005; 93306; 96365; 96366; 96376; 99285

== ENCOUNTER → 2018-08-05 | Outpatient (CLI) | payer MEDICARE ==
[2018-08-05 14:04] LABS: HCT 48.6 % (39.0-53.0); HGB 15.1 gm/dL (13.0-17.5); MCH 29.8 pg (25.0-35.0); MCHC 31.1 g/dL (31.0-37.0); Mean Platelet Volume 7.6; Platelet Count 192 k/uL (150-450); RBC 5.06 m/uL (4.30-5.90); RDW 12.5 % (11.5-15.5); WBC 5.4 k/uL (3.8-10.6)
[2018-08-05 14:15] LABS: Anion Gap 8 mmol/L; Blood Urea Nitrogen 13 mg/dL (9-20); Carbon Dioxide 30 mmol/L (22-30); Chloride 103 mmol/L (98-107); Potassium 4.8 mmol/L (3.5-5.1); Sodium 141 mmol/L (137-145)
== END | disposition home or self-care (01) ==
LOC: LABPAT 12:35
PROVIDERS: ATTEND Internal Medicine Interventional Cardiology
DX: Z01.812 Encounter for preprocedural laboratory examination (principal); I48.4 Atypical atrial flutter
CPT/HCPCS: 80051; 82565; 84520; 85027

== ENCOUNTER 2018-08-12 06:23 | Day surgery (SDC) | payer MEDICARE ==
[2018-08-10 12:11] VITALS: BMI 27.8
[2018-08-12] MEDS ORDERED: LACTATED RINGERS 1,000 ML IV SCH (06:24)
[2018-08-12] MEDS ORDERED: SODIUM CHLORIDE 0.9% 1,000 ML IV SCH ×2 (06:24→07:45)
[2018-08-12 07:02] VITALS: TEMP 98.4
[2018-08-12] MEDS ORDERED: PROPOFOL 10 MG/ML 20 ML VIAL IV ONE (07:18)
[2018-08-12] MEDS ORDERED: LIDOCAINE 1% INJ 10MG/ML (20 ML MDV) ONE (07:18)
[2018-08-12 07:55] VITALS: RESP 16
--- NOTE | 2018-08-12 09:27 | ECHOT ---
TRANSESOPHAGEAL ECHOCARDIOGRAM INDICATION: Chronic atrial fibrillation to rule out intracardiac thrombus prior to cardioversion. After obtaining informed consent, transesophageal echocardiogram was performed in left lateral position using an Omniplane probe. Local and IV sedation were obtained by the resort housekeeper. Patient tolerated the procedure well without any obvious immediate complications. FINDINGS: 1. There is no intracardiac thrombus within the left atrial appendage, left atrium, right atrium, right ventricle or left ventricle. 2. Left atrium appears enlarged. 3. Right atrium and right ventricle seen within normal limits. 4. Left ventricle is normal size, shows mild diffuse global hypokinesis with mild LV dysfunction with an ejection fraction of 45%. 5. Mitral valve appears anatomically normal. There is mild mitral regurgitation noted. 6. Tricuspid valve shows mild tricuspid regurgitation. 7. Aortic valve is a 3-leaflet valve. There is no evidence of aortic stenosis or regurgitation. 8. Interatrial septum: There is no evidence of pack-ps-jaywv shunt by color-flow Doppler or [id number]-[id number] shunt by agitated saline contrast study. 9. Aorta shows [id number] atherosclerotic changes. CONCLUSION: No intracardiac thrombus. PLAN: Patient will proceed with cardioversion. MMODL / IJN: [id number] /
--- NOTE | 2018-08-12 09:33 | CE ---
CARDIAC ELECTROPHYSIOLOGY REPORT CARDIOVERSION NOTE: After obtaining informed consent and making sure that the patient does not have any intracardiac thrombus with a transesophageal echo and confirming that the patient is on long-term anticoagulation with Eliquis, the patient underwent cardioversion with 200 joules of synchronized DC current. He converted to sinus rhythm following a single shock. The plan at this stage is to discharge him home on his current medications including Eliquis, Cozaar and multivitamin. He will follow up with me in a week's time. The patient had been encouraged to decrease his alcohol intake. AMAIRANI / KADIEN: [id number] /
[2018-08-12 10:09] VITALS: BP 136/72; PULSE 60
--- NOTE | 2018-08-17 13:07 | CDI ---
Date: 08/17/18 CDS/Medical Record Coder Name: Gila Weldon Phone: If any questions, call Arianna Zavala Tongue Presser at [phone] Patient Name: Russel Castillo Admit Date: 08/12/18 Discharge Date: 08/12/18 ATTENTION: The [facility] Coding Staff appreciate your assistance in clarifying documentation. Please respond to the clarification below the line at the bottom and electronically sign. The [facility] Coding staff will review the response and follow-up if needed. Please note: Queries are made part of the Legal Health Record. If you have any questions, please contact the Tongue Presser. Dear Dr. Soto, Please provide clarification as to the diagnosis of atrial fibrillation.. H&P documents History of paroxysmal atrial fibrillation on one page and chronic atrial fibrillation on another page. DWAYNE report documents chronic atrial fibrillation. Please clarify. Thank you for your kind consideration. chronic atrial fibrillation MTDD
== END 2018-08-12 09:35 | disposition home or self-care (01) ==
LOC: CATHCVL 06:23
PROVIDERS: ATTEND Internal Medicine Cardiovascular Disease
DX: I48.3 Typical atrial flutter (principal); I48.2 Chronic atrial fibrillation; I08.1 Rheumatic disorders of both mitral and tricuspid valves; I70.0 Atherosclerosis of aorta; I71.2 Thoracic aortic aneurysm, without rupture; I10 Essential (primary) hypertension; Z87.891 Personal history of nicotine dependence; Z79.82 Long term (current) use of aspirin; Z79.01 Long term (current) use of anticoagulants; Z79.899 Other long term (current) drug therapy; Z88.0 Allergy status to penicillin
CPT/HCPCS: 93312; 93320; 93325; 92960; J2001; J2704

== ENCOUNTER → 2019-05-05 | Outpatient (CLI) | payer MEDICARE ==
[2019-05-05 13:42] LABS: African American GFR (CKD) >90 (>60 ml/min/1.73 sqM); Blood Urea Nitrogen 16 mg/dL (9-20)
--- NOTE | 2019-05-05 15:21 | CT ---
EXAMINATION TYPE: CT chest w con DATE OF EXAM: 05/05/2019 COMPARISON: 04/14/2018 HISTORY: 73-year-old male Abnormal findings of lung TECHNIQUE: Contiguous axial scanning of the chest after the administration of 100 ml mL of Isovue 300 . Coronal/sagittal reconstructions performed. CT DLP: 470.10mGycm. Automatic exposure control utilized for a dose reduction. FINDINGS: Heart upper limits of normal in size without pericardial effusion. Stable pericardial calcifications anteriorly suggests sequela of prior inflammation. Mild coronary vessel calcifications. Ascending aorta remains mildly aneurysmal at 4.1 cm. Mild atherosclerotic arch calcifications. Conven tional arch vessel branching anatomy. Ectatic upper descending thoracic aorta 3.2 cm unchanged. Ectat ic lower descending thoracic aorta at 2.8 cm, unchanged. Large caliber to the main right and left pulmonary arteries at 3.2 and 2.7 cm, respectively, suggesti ng underlying pulmonary hypertension. Scattered prominent but nonenlarged mediastinal lymph nodes measuring up to 9 mm in the paratracheal region, decreased in size from prior. No thoracic lymphadenopathy by CT size criteria. Stable calcified granuloma anterior right midlung. Otherwise, scattered 6 mm smaller pulmonary nodule s are unchanged from 04/14/2018 compatible with a benign etiology. Mild biapical pleural-parenchymal scarring. No consolidation or pleural effusion. Visualized upper abdomen shows a posterior hilar splenule. Bones: [facility] within the lower thoracic spine. IMPRESSION: 1. Scattered 6 mm and smaller pulmonary nodules are unchanged for just over 1 year compatible with a benign etiology. 2. Stable aneurysmal thoracic aorta (ascending 4.1 cm and upper descending 3.2 cm). 3. There may be underlying pulmonary arterial hypertension. Clinically correlate.
== END | disposition home or self-care (01) ==
LOC: RADCTMAIN 13:02
PROVIDERS: ATTEND Internal Medicine Critical Care Medicine
DX: R91.8 Other nonspecific abnormal finding of lung field (principal); Z88.0 Allergy status to penicillin
CPT/HCPCS: 82565; 84520; 71260; 36415; Q9967

== ENCOUNTER 2019-12-12 19:10 | Observation (INO) | payer MEDICARE ==
[2019-12-12] MEDS ORDERED: NITROGLYCERIN OINT 1 INCH/GM PACKET TOPICAL STA (19:23)
[2019-12-12] MEDS ORDERED: ASPIRIN 81 MG PO STA (19:23)
--- NOTE | 2019-12-12 19:25 | ED ---
General Adult HPI - General Chief complaint: Chest Pain Stated complaint: Chest Pain Time Seen by Provider: 12/12/19 19:18 Source: patient, RN notes reviewed Mode of arrival: ambulatory Limitations: no limitations - History of Present Illness Initial comments: Patient is a pleasant 74-year-old male presenting to the emergency Department with chest discomfort. Symptoms have been occurring over the past week or so. Symptoms worsen with exertion. Discomfort is described as pressure in the chest without radiation. Patient has associated exertional dyspnea. A coley also was diaphoretic today. No nausea. Patient was lightheaded with exertion. No history of similar symptoms previously. No leg pain or leg swelling. - Related Data Home Medications Medication Instructions Recorded Confirmed Cholecalciferol [Vitamin D3 (25 1,000 units PO BID 04/14/14 08/12/18 Mcg = 1000 Iu)] Folic Acid 1 mg PO DAILY 04/13/18 08/12/18 Multivitamins, Thera [Multivitamin 1 tab PO DAILY 07/08/18 08/12/18 (formulary)] [place]-3 Fatty Acids/Fish Oil [Fish 1 cap PO DAILY 07/08/18 08/12/18 Oil 1,000 mg Softgel] Previous Rx's Medication Instructions Recorded Apixaban [Eliquis] 5 mg PO BID #60 tab 07/09/18 Aspirin 81 mg PO DAILY #0 chew 07/09/18 Losartan [Cozaar] 25 mg PO DAILY #30 tab 07/09/18 Allergies Allergy/AdvReac Type Severity Reaction Status Date / Time Penicillins Allergy Severe Anaphylaxis Verified 12/12/19 19:12 Review of Systems ROS Statement: Those systems with pertinent positive or pertinent negative responses have been documented in the HPI. ROS Other: All systems not noted in ROS Statement are negative. Constitutional: Denies: fever Eyes: Denies: eye pain ENT: Denies: ear pain Respiratory: Reports: as per HPI. Denies: cough Cardiovascular: Reports: chest pain Endocrine: Reports: fatigue Gastrointestinal: Denies: abdominal pain, nausea, vomiting Genitourinary: Denies: dysuria Musculoskeletal: Denies: back pain Skin: Denies: rash Neurological: Denies: weakness Past Medical History Past Medical History: Hypertension Additional Past Medical History / Comment(s): Pt states his blood pressure is only elevated while in the doctor's office or hospital-it is normal when he monitors it at home, rheumatic fever twice as a child, afib with successful cardioversion in March,, "I drink too much.", recent sinus infection/sore throat. History of Any Multi-Drug Resistant Organisms: None Reported Past Surgical History: Adenoidectomy, Heart Catheterization, Tonsillectomy Additional Past Surgical History / Comment(s): 04/19/18 cardioversion, normal cardiac cath in 2018, vasectomy, colonoscopy. Past Anesthesia/Blood Transfusion Reactions: No Reported Reaction Past Psychological History: No Psychological Hx Reported Smoking Status: Former smoker Past Alcohol Use History: None Reported, Abuse, Daily, Heavy Past Drug Use History: None Reported - Past Family History Father History Unknown: Yes Family Medical History: No Reported History Additional Family Medical History / Comment(s): Father was healthy. Mother History Unknown: Yes Additional Family Medical History / Comment(s): Parkinsons Disease. Brother(s) Family Medical History: Cancer Sister(s) Family Medical History: Cancer, Coronary Artery Disease (CAD) Daughter(s) Family Medical History: No Reported History Son(s) Family Medical History: No Reported History General Exam Limitations: no limitations General appearance: alert, in no apparent distress Head exam: Present: normocephalic Eye exam: Present: normal appearance Neck exam: Present: normal inspection Respiratory exam: Present: normal lung sounds bilaterally. Absent: chest wall tenderness Cardiovascular Exam: Present: regular rate, normal rhythm Expanded Peripheral pulses: 2+: Radial (R), Radial (L), Dorsalis Pedis (R), Dorsalis Pedis (L) GI/Abdominal exam: Present: soft. Absent: tenderness Extremities exam: Present: normal inspection. Absent: pedal edema, calf tenderness Neurological exam: Present: alert Psychiatric exam: Present: normal affect, normal mood Skin exam: Present: normal color Course Vital Signs 12/12/19 19:12 Temperature 98.3 F Pulse Rate 64 Respiratory 18 Rate Blood Pressure 167/94 O2 Sat by Pulse 99 Oximetry EKG Findings - EKG Comments: EKG Findings:: A. fib with rate of 81. QRS 88. QT 358. QTC 4:15. Normal axis. Normal QRS. There is some ST depression laterally. Medical Decision Making - Medical Decision Making Patient reevaluated and resting comfortably in bed, only mild discomfort at this time. Patient and family updated on results and plan. Case was discussed in detail with Dr. Call, who will admit covering for Dr. Jhaveri. he does request discussing case with cardiology. Case was also discussed with Dr. Moscoso, who will consult. - Lab Data Result diagrams: 12/12/19 19:32 12/12/19 19:34 Lab Results 12/12/19 12/12/19 12/12/19 Range/Units 19:32 19:34 19:34 WBC 9.4 (3.8-10.6) k/uL RBC 5.39 (4.30-5.90) m/uL Hgb 16.6 (13.0-17.5) gm/dL Hct 51.4 (39.0-53.0) % MCV 95.4 (80.0-100.0) fL MCH 30.9 (25.0-35.0) pg MCHC 32.4 (31.0-37.0) g/dL RDW 12.3 (11.5-15.5) % Plt Count 208 (150-450) k/uL Neutrophils % 72 % Lymphocytes % 14 % Monocytes % 8 % Eosinophils % 2 % Basophils % 1 % Neutrophils # 6.8 (1.3-7.7) k/uL Lymphocytes # 1.3 (1.0-4.8) k/uL Monocytes # 0.8 (0-1.0) k/uL Eosinophils # 0.2 (0-0.7) k/uL Basophils # 0.1 (0-0.2) k/uL Sodium 137 (137-145) mmol/L Potassium 4.5 (3.5-5.1) mmol/L Chloride 103 (98-107) mmol/L Carbon Dioxide 23 (22-30) mmol/L Anion Gap 11 mmol/L BUN 15 (9-20) mg/dL Creatinine 0.91 (0.66-1.25) mg/dL Est GFR (CKD-EPI)AfAm >90 (>60 ml/min/1.73 sqM) Est GFR (CKD-EPI)NonAf 82 (>60 ml/min/1.73 sqM) Glucose 86 (74-99) mg/dL Calcium 10.2 (8.4-10.2) mg/dL Magnesium 2.2 (1.6-2.3) mg/dL Total Bilirubin 1.3 (0.2-1.3) mg/dL AST 42 (17-59) U/L ALT 44 (4-49) U/L Alkaline Phosphatase 112 (38-126) U/L Troponin I <0.012 (0.000-0.034) ng/mL Total Protein 8.2 (6.3-8.2) g/dL Albumin 4.8 (3.5-5.0) g/dL - Radiology Data Radiology results: image reviewed (Chest x-ray shows mild pleural diaphragmatic scarring right lung base. Normal heart.) Critical Care Time Critical Care Time: Yes Total Critical Care Time: 32 Disposition Clinical Impression: Unstable angina Disposition: ADMITTED IP TO THIS [facility] Condition: Serious Is patient prescribed a controlled substance at d/c from ED?: No Referrals: Romel Jhaveri MD [Primary Care Provider] - 1-2 days Decision Time: 20:10
[2019-12-12 19:41] LABS: Basophils # (A) 0.1 k/uL (0-0.2); Basophils % (A) 1 %; Eosinophils # (A) 0.2 k/uL (0-0.7); Eosinophils % (A) 2 %; HCT 51.4 % (39.0-53.0); HGB 16.6 gm/dL (13.0-17.5); Lymphocytes # (A) 1.3 k/uL (1.0-4.8); Lymphocytes % (A) 14 %; MCH 30.9 pg (25.0-35.0); MCHC 32.4 g/dL (31.0-37.0); MCV 95.4 fL (80.0-100.0); Mean Platelet Volume 7.8; Monocytes # (A) 0.8 k/uL (0-1.0); Monocytes % (A) 8 %; Neutrophils # (A) 6.8 k/uL (1.3-7.7); Neutrophils % (A) 72 %; Platelet Count 208 k/uL (150-450); RBC 5.39 m/uL (4.30-5.90); RDW 12.3 % (11.5-15.5); WBC 9.4 k/uL (3.8-10.6)
[2019-12-12 19:50] LABS: ALT 44 U/L (4-49); AST 42 U/L (17-59); African American GFR (CKD) >90 (>60 ml/min/1.73 sqM); Albumin 4.8 g/dL (3.5-5.0); Alkaline Phosphatase 112 U/L (38-126); Anion Gap 11 mmol/L; Blood Urea Nitrogen 15 mg/dL (9-20); Calcium 10.2 mg/dL (8.4-10.2); Carbon Dioxide 23 mmol/L (22-30); Chloride 103 mmol/L (98-107); Glucose 86 mg/dL (74-99); Magnesium 2.2 mg/dL (1.6-2.3); Non-African American GFR(CKD) 82 (>60 ml/min/1.73 sqM); Potassium 4.5 mmol/L (3.5-5.1); Sodium 137 mmol/L (137-145); Total Bilirubin 1.3 mg/dL (0.2-1.3); Total Protein 8.2 g/dL (6.3-8.2)
--- NOTE | 2019-12-12 19:57 | XR ---
EXAMINATION TYPE: XR chest 2V DATE OF EXAM: 12/12/2019 COMPARISON: 07/08/2018 HISTORY: Chest pain TECHNIQUE: FINDINGS: There is slight blunting right costophrenic angle. Lungs are clear of consolidation. There is no heart failure. There are no hilar masses. Heart size is fairly normal. There are chest leads. B hanna thorax appears intact. IMPRESSION: There is mild pleural diaphragmatic scarring at the right lung base unchanged. Normal hea rt.
[2019-12-12 20:09] LABS: INR 1.1 (<1.2)
[2019-12-12 20:10] LABS: D-Dimer 0.35 mg/L FEU (<0.60); Partial Thromboplastin Time 24.2 sec (22.0-30.0); Prothrombin Time 10.9 sec (9.0-12.0)
[2019-12-12] MEDS ORDERED: HEPARIN SODIUM,PORCINE 5,000 UNIT/ML 1 ML VIAL IV ONE (20:11)
[2019-12-12] MEDS ORDERED: NITROGLYCERIN SL TABS 0.4 MG TAB SUBLINGUAL PRN (20:11)
[2019-12-12] MEDS ORDERED: HEPARIN SODIUM,PORCINE 5,000 UNIT/ML 1 ML VIAL IV PRN (20:16)
[2019-12-12] MEDS ORDERED: HEPARIN SOD,PORK IN 0.45% NACL 25,000 UNIT in 0.45% NACL 1 250ML.BAG IV SCH (20:30)
--- NOTE | 2019-12-12 22:39 | P.HPIM ---
History of Present Illness H&P Date: 12/12/19 Chief Complaint: Unstable angina: Hypertension, A. fib, hyperlipidemia 74-year-old male mildly overweight [address] Jhaveri's patient with past medical history of hypertension A. fib and hyperlipidemia who developed to have exertional chest pain on and off this last week become slightly bit worse today was associated with significant dyspnea and shortness of breath diaphoresis nausea without vomiting with mild lightheadedness and slight increased palpitation. Symptoms become slightly bit worse today ended up coming to demurs department at [facility] where was seen his troponin was negative he is electrolyte did not show any major abnormality d-dimer was elevated EKG showed atrophy fibrillation with ST depression in the lateral lead as a new finding compared to the loss EKG. Patient is already on anticoagulation cardiology were called patient be hospitalized continue to watch his symptoms repeat another EKG in the morning keep following the troponin through the night patient will be going for an echocardiogram and depending on the finding by tomorrow might go for either stress test or heart catheter. Review patient's chart patient apparently had some electrophysiology testing had cardioversion in the past after transesophageal echocardiogram and had a negative heart cath in 2018 consistent with normal coronary artery the time. Patient is still seen cardiology regularly. Review of Systems CONSTITUTIONAL: Well-developed no acute respiratory distress. EYES: No icterus sclerae, no conjunctivitis. EARS, NOSE, MOUTH, THROAT, and FACE: No sore throat, lymphadenopathy, carotid bruits or deformity. RESPIRATORY: Slight shortness of breath and dyspnea. CARDIOVASCULAR: Mild chest pain and angina with PND and orthopnea. GASTROINTESTINAL: No Abd pain, Nausea or vomiting, no Diarrhea or constipation, No GI Bleed, no distention or masses. GENITOURINARY: Negative for Hematuria or UTI, no kidney stones. INTEGUMENT/BREAST: Negative for any muscular injury with mild osteoarthritis.. HEMATOLOGIC/LYMPHATIC: Negative for bleed or purpura. MUSCULOSKELTAL: Negative for Myalgia or arthralgia. NEURLOGICAL: No LOC, Sz or syncope, blurred vision dizziness or abnormality.. BEHAVIORAL/PSYCH: Negative. ENDOCRINE: Negative. Past Medical History Past Medical History: Hypertension Additional Past Medical History / Comment(s): Pt states his blood pressure is only elevated while in the doctor's office or hospital-it is normal when he monitors it at home, rheumatic fever twice as a child, afib with successful cardioversion in March,, "I drink too much.", recent sinus infection/sore throat. History of Any Multi-Drug Resistant Organisms: None Reported Past Surgical History: Adenoidectomy, Heart Catheterization, Tonsillectomy Additional Past Surgical History / Comment(s): 04/19/18 cardioversion, normal cardiac cath in 2018, vasectomy, colonoscopy. Past Anesthesia/Blood Transfusion Reactions: No Reported Reaction Past Psychological History: No Psychological Hx Reported Smoking Status: Former smoker Past Alcohol Use History: None Reported, Abuse, Daily, Heavy Past Drug Use History: None Reported - Past Family History Father History Unknown: Yes Family Medical History: No Reported History Additional Family Medical History / Comment(s): Father was healthy. Mother History Unknown: Yes Additional Family Medical History / Comment(s): Parkinsons Disease. Brother(s) Family Medical History: Cancer Sister(s) Family Medical History: Cancer, Coronary Artery Disease (CAD) Daughter(s) Family Medical History: No Reported History Son(s) Family Medical History: No Reported History Medications and Allergies Home Medications Medication Instructions Recorded Confirmed Type Multivitamins, Thera [Multivitamin 1 tab PO DAILY 07/08/18 12/12/19 History (formulary)] [place]-3 Fatty Acids/Fish Oil [Fish 1 cap PO DAILY 07/08/18 12/12/19 History Oil 1,000 mg Softgel] Aspirin 81 mg PO DAILY #0 chew 07/09/18 12/12/19 Rx Losartan [Cozaar] 25 mg PO DAILY #30 tab 07/09/18 12/12/19 Rx Cholecalciferol (Vitamin D3) 2,000 unit PO DAILY 12/12/19 12/12/19 History [Vitamin D3] Folic Acid 0.8 mg PO DAILY 12/12/19 12/12/19 History Allergies Allergy/AdvReac Type Severity Reaction Status Date / Time Penicillins Allergy Severe Anaphylaxis Verified 12/12/19 21:13 Physical Exam Vitals: Vital Signs Temp Pulse Resp BP Pulse Ox 12/12/19 22:00 83 122/97 96 12/12/19 21:30 87 134/93 96 12/12/19 21:00 91 124/101 97 12/12/19 20:30 86 145/108 98 12/12/19 19:12 98.3 F 64 18 167/94 99 Intake and Output 12/12/19 12/12/19 12/12/19 06:59 14:59 22:59 Other: Weight 92.986 kg General Appearance: Alert, cooperative, no distress, appears stated age. Neck HEENT: Supple, no lymphadenopathy, no thyroid enlargement, no carotid bruits. Lungs: Clear to auscultation without crackles or wheezes no rhonchi, no deformity. Chest Wall: Chest wall normal expansion with deep inspiration no tenderness and no deformity was found on exam, no costochondral pain or discomfort. Heart: Regular rate and rhythm, S1, S2 normal, no murmur, rub or gallop. Back: Symmetric, no curvature, ROM normal, no CVA tenderness. Abdomen: Soft, non-tender, bowel sounds active all four quadrants, no masses, no organomegaly. Extremities: Extremities normal, atraumatic, no cyanosis or edema. Pulses: 2+ and symmetric. Skin: Skin color, texture, tugor normal, no rashes or lesions. Neurologic: Alert oriented x3 cranial nerves II through XII intact, no motor deficit, no abnormal balance or gait. Results CBC & Chem 7: 12/12/19 19:32 12/12/19 19:34 Thrombosis Risk Factor Assmnt - DVT/VTE Prophylaxis DVT/VTE Prophylaxis: Pharmacologic Prophylaxis ordered, Mechanical Prophylaxis ordered Assessment and Plan Assessment: 1 chest pain and atypical angina: Patient had slight ST depression in the lateral lead despite the negative troponin initially, patient be seeing cardiology repeat troponin times 3 repeat echocardiogram and depending on the finding with the side on either echocardiogram, conservative management or heart cath. 2 A. fib: Pulse rates under control on metoprolol, patient remain on request doing well. 3 hyperlipidemia: Should be on smaller dose of statin. For rheumatoid arthritis: He still on anti-inflammatory agent only no biologic agent this point. 5 hypertension: On losartan 25 g a day. 6 low vitamin D: Still on vitamin D supplement. 7 severe GERD: Patient will be on Pepcid 20 mg daily. 8 DVT prophylaxis: Patient was started on heparin continue to watch for any complication. CODE STATUS: Full code. Admit patient to observation service for overnight stay.
[2019-12-12] MEDS: SODIUM CHLORIDE 0.9% 1,000 ML IV SCH (23:11)
[2019-12-13] MEDS: NITROGLYCERIN OINT 1 INCH/GM PACKET TOPICAL SCH ×4 (01:38→19:28)
--- NOTE | 2019-12-13 07:51 | P.CRDCN ---
History of Present Illness Consult date: 12/13/19 Chief complaint: Chest discomfort History of present illness: This is a very pleasant 74-year-old gentleman who sees Dr. Soto in the office on regular basis with a past medical history significant for paroxysmal atrial fibrillation who underwent in 2019 cardioversion as well as hypertension and dyslipidemia presented to the hospital complaining of chest discomfort. For the last 4 weeks, he has been experiencing intermittent episodes of chest discomfort. The chest discomfort seems to be very concerning for angina. He stated that any kind of exertion during chest discomfort on. He described it as a tightness/pressure across the chest without any radiation to the arms or neck or shoulders and with associated symptoms of sweating. No established history of coronary artery disease. He underwent a heart catheterization long time ago and that according to her was unremarkable. The EKG showed atrial fibrillation with relatively controlled heart rate with ST changes in the lateral leads. 3 sets of cardiac enzymes were checked and came in to be unremarkable. The patient does have multiple risk factors including hypertension and dyslipidemia. No history of smoking. He drinks alcohol excessively and he stated that he drinks about 6 beers every day. He is not on any oral anticoagulation for some reasons. I had a long discussion with the patient regarding the next step and I advised the patient to undergo coronary angiogram but the patient refused at this point. I also advised the patient to undergo a stress test and he refused as well. 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 Soto and meanwhile I will obtain an echocardiogram with Doppler. We'll continue following up with him. Meanwhile I will continue the heparin IV at this point and he needs to be on oral anticoagulation. Past Medical History Past Medical History: GERD/Reflux, Hyperlipidemia, Hypertension Additional Past Medical History / Comment(s): Pt states his blood pressure is only elevated while in the doctor's office or hospital-it is normal when he monitors it at home, rheumatic fever twice as a child, afib with successful cardioversion in March,, "I drink too much." History of Any Multi-Drug Resistant Organisms: None Reported Past Surgical History: Adenoidectomy, Heart Catheterization, Tonsillectomy Additional Past Surgical History / Comment(s): 04/19/18 cardioversion, normal cardiac cath in 2018, vasectomy, colonoscopy. Past Anesthesia/Blood Transfusion Reactions: No Reported Reaction Past Psychological History: No Psychological Hx Reported Additional Psychological History / Comment(s): Pt resides alone. He has one dog. He is independent. Smoking Status: Former smoker Past Alcohol Use History: None Reported, Abuse, Daily, Heavy Additional Past Alcohol Use History / Comment(s): Pt states he quit smoking in the late 1980s. He drinks 6 beers per day Past Drug Use History: None Reported - Past Family History Father History Unknown: Yes Family Medical History: No Reported History Additional Family Medical History / Comment(s): Father was healthy. Mother History Unknown: Yes Additional Family Medical History / Comment(s): Parkinsons Disease. Brother(s) Family Medical History: Cancer Sister(s) Family Medical History: Cancer, Coronary Artery Disease (CAD) Daughter(s) Family Medical History: No Reported History Son(s) Family Medical History: No Reported History Medications and Allergies Home Medications Medication Instructions Recorded Confirmed Type Multivitamins, Thera [Multivitamin 1 tab PO DAILY 07/08/18 12/13/19 History (formulary)] Newton-3 Fatty Acids/Fish Oil [Fish 1 cap PO DAILY 07/08/18 12/13/19 History Oil 1,000 mg Softgel] Aspirin 81 mg PO DAILY #0 chew 07/09/18 12/13/19 Rx Losartan [Cozaar] 25 mg PO DAILY #30 tab 07/09/18 12/13/19 Rx Cholecalciferol (Vitamin D3) 2,000 unit PO DAILY 12/12/19 12/13/19 History [Vitamin D3] Folic Acid 0.8 mg PO DAILY 12/12/19 12/13/19 History Allergies Allergy/AdvReac Type Severity Reaction Status Date / Time Penicillins Allergy Severe Anaphylaxis Verified 12/13/19 00:26 Physical Exam Vitals: Vital Signs Temp Pulse Pulse Resp BP BP Pulse Ox 12/13/19 03:46 98.2 F 74 18 124/66 98 12/13/19 00:00 98.6 F 88 18 148/81 98 12/12/19 23:33 98.9 F 89 18 116/83 96 12/12/19 23:00 86 129/89 97 12/12/19 22:00 83 122/97 96 12/12/19 21:30 87 134/93 96 12/12/19 21:00 91 124/101 97 12/12/19 20:30 86 145/108 98 12/12/19 19:12 98.3 F 64 18 167/94 99 Intake and Output 12/12/19 12/13/19 12/13/19 22:59 06:59 14:59 Intake Total 69.167 Balance 69.167 Intake: Intake, IV Titration 69.167 Amount Heparin Sod,Pork in 0.45% 69.167 NaCl 25,000 unit In 0.45 % NaCl 1 250ml.bag @ 10. 754 UNITS/KG/HR 10 mls/hr IV .Q24H [facility] Rx#: [id number] Other: Voiding Method Toilet # Voids 1 Weight 92.986 kg 95.2 kg - Constitutional General appearance: no acute distress - Respiratory Respiratory: bilateral: CTA - Cardiovascular Rhythm: irregularly irregular Heart sounds: normal: S1, S2 Abnormal Heart Sounds: systolic murmur Results 12/12/19 19:32 12/12/19 19:34 Cardiac Enzymes 12/12/19 12/12/19 12/13/19 Range/Units 19:34 19:34 02:26 AST 42 (17-59) U/L Troponin I <0.012 <0.012 (0.000-0.034) ng/mL Coagulation 12/12/19 12/13/19 Range/Units 19:34 02:26 PT 10.9 (9.0-12.0) sec APTT 24.2 40.1 H (22.0-30.0) sec CBC 12/12/19 Range/Units 19:32 WBC 9.4 (3.8-10.6) k/uL RBC 5.39 (4.30-5.90) m/uL Hgb 16.6 (13.0-17.5) gm/dL Hct 51.4 (39.0-53.0) % Plt Count 208 (150-450) k/uL Comprehensive Metabolic Panel 12/12/19 Range/Units 19:34 Sodium 137 (137-145) mmol/L Potassium 4.5 (3.5-5.1) mmol/L Chloride 103 (98-107) mmol/L Carbon Dioxide 23 (22-30) mmol/L BUN 15 (9-20) mg/dL Creatinine 0.91 (0.66-1.25) mg/dL Glucose 86 (74-99) mg/dL Calcium 10.2 (8.4-10.2) mg/dL AST 42 (17-59) U/L ALT 44 (4-49) U/L Alkaline Phosphatase 112 (38-126) U/L Total Protein 8.2 (6.3-8.2) g/dL Albumin 4.8 (3.5-5.0) g/dL Current Medications Generic Name Dose Route Start Last Admin Trade Name Freq PRN Reason Stop Dose Admin Aspirin 81 mg 12/13/19 09:00 Aspirin PO DAILY [facility] Cholecalciferol 2,000 unit 12/13/19 09:00 Vitamin D3 (25 Mcg = 1000 Iu) PO DAILY [facility] Famotidine 20 mg 12/13/19 09:00 Pepcid PO DAILY [facility] Folic Acid 1 mg 12/13/19 09:00 Folic Acid PO DAILY [facility] Heparin Sodium (Porcine) 0 unit 12/12/19 20:16 12/13/19 03:41 Heparin IV 2,300 unit Q6HR PRN Administration Low PTT Protocol Sodium Chloride 1,000 mls @ 20 mls/hr 12/12/19 20:30 12/12/19 23:11 Saline 0.9% IV 20 mls/hr .Q24H [facility] Administration Heparin Sodium/Sodium Chloride 250 mls @ 10 mls/hr 12/12/19 20:30 12/13/19 03:42 25,000 unit/ Sodium Chloride IV 12.754 units/kg/hr .Q24H [facility] 11.859 mls/hr Titration Protocol 10.754 UNITS/KG/HR Losartan Potassium 25 mg 12/13/19 09:00 Cozaar PO DAILY [facility] Multivitamins 1 each 12/13/19 09:00 Theragran PO DAILY [facility] Nitroglycerin 0.4 mg 12/12/19 20:11 Nitrostat SUBLINGUAL Q5M PRN Chest Pain Nitroglycerin 1 inch 12/13/19 00:00 12/13/19 03:27 Nitro-Bid Oint TOPICAL Not Given Q6HR [facility] Intake and Output 12/12/19 12/13/19 12/13/19 22:59 06:59 14:59 Intake Total 69.167 Balance 69.167 Intake: Intake, IV Titration 69.167 Amount Heparin Sod,Pork in 0.45% 69.167 NaCl 25,000 unit In 0.45 % NaCl 1 250ml.bag @ 10. 754 UNITS/KG/HR 10 mls/hr IV .Q24H [facility] Rx#: [id number] Other: Voiding Method Toilet # Voids 1 Weight 92.986 kg 95.2 kg 12/12/19 19:32 12/12/19 19:34 Assessment and Plan Assessment: Assessment Intermittent episodes of chest discomfort concerning for angina Paroxysmal atrial fibrillation Hypertension Significant history of alcohol use Plan Acute coronary event was ruled out A heart catheterization was advised and the patient refused Stress test was advised and the patient refused Continue the current medical treatment including heparin IV Obtain an echocardiogram was Doppler Further recommendation to follow Thank you for allowing us participate in his care
[2019-12-13] MEDS ORDERED: ASPIRIN 325 MG TAB PO SCH (09:00)
[2019-12-13] MEDS ORDERED: NON FORMULARY DRUG (Omega-3 Fatty Acids/Fish Oil [Fish Oil 1,000 Mg Softgel] 1 CAP) PO SCH (09:00)
[2019-12-13] MEDS ORDERED: APIXABAN 5 MG TAB PO SCH (09:15)
[2019-12-13 09:17] LABS: Platelet Count 181 k/uL (150-450)
[2019-12-13] MEDS: METOPROLOL TARTRATE 25 MG TAB PO SCH ×2 (09:59→21:01)
[2019-12-13] MEDS: FOLIC ACID 1 MG TAB PO SCH (09:59)
[2019-12-13] MEDS: ASPIRIN 81 MG PO SCH (09:59)
[2019-12-13] MEDS: LOSARTAN 25 MG TAB PO SCH (09:59)
[2019-12-13] MEDS: CHOLECALCIFEROL 1,000 UNIT TAB PO SCH (09:59)
[2019-12-13] MEDS: MULTIVITAMINS, THERA 1 EACH TAB PO SCH (09:59)
[2019-12-13] MEDS: FAMOTIDINE 20 MG TAB PO SCH (09:59)
[2019-12-13 10:36] LABS: Cholesterol 216 mg/dL (<200); HDL Cholesterol 94 mg/dL (40-60); LDL Cholesterol,Calculated 109 mg/dL (0-99); Triglycerides 64 mg/dL (<150)
--- NOTE | 2019-12-13 13:26 | P.PN ---
Subjective Progress Note Date: 12/13/19 74-year-old male mildly overweight [address] Jhaveri's patient with past medical history of hypertension A. fib and hyperlipidemia who developed to have exertional chest pain on and off this last week become slightly bit worse today was associated with significant dyspnea and shortness of breath diaphoresis na usea without vomiting with mild lightheadedness and slight increased palpitation. Symptoms become slightly bit worse today [facility] was seen his troponin was negative he is electrolyte did not show any major abnormality d-dimer was elevated EKG showed atrophy fibrillation with ST depression in the lateral lead as a new finding compared to the loss EKG. Patient is already on anticoagulation cardiology were called patient be hospitalized continue to watch his symptoms repeat another EKG in the morning keep following the troponin through the night patient will be going for an echocardiogram and depending on the finding by tomorrow might go for either stress test or heart catheter. Review patient's chart patient apparently had some electrophysiology testing had cardioversion in the past after transesophageal echocardiogram and had a negative heart cath in 2018 consistent with normal coronary artery the time. Patient is still seen cardiology regularly. 12/12: The patient states he had another episode of pressure-type pain in his chest when he got to the bathroom came back to bed during the night. He was seen by cardiology this morning he was recommended for cardiac catheterization and stress test the patient that time refused. After discussion with Dr. Call, patient agrees to undergo heart catheterization. Cardiology is currently planning to continue heparin drip, monitor for episodes of chest pain and if any recurrence, heart catheterization tomorrow. Patient has been hemodynamically stable. Afebrile, pulse ox 98% on room air, blood pressure 124/66, heart rate 74. Troponins have been negative on 3 draws. Triglycerides 64, cholesterol 216, LDL 109, HDL 94. Review of Systems CONSTITUTIONAL: Well-developed no acute respiratory distress. No fever, no chills. EYES: No icterus sclerae, no conjunctivitis. EARS, NOSE, MOUTH, THROAT, and FACE: No sore throat, lymphadenopathy, carotid bruits or deformity. RESPIRATORY: Slight shortness of breath and dyspnea with chest pain. CARDIOVASCULAR: Mild chest pain and angina with PND and orthopnea. GASTROINTESTINAL: No Abd pain, Nausea or vomiting, no Diarrhea or constipation, No GI Bleed, no distention or masses. GENITOURINARY: Negative for Hematuria or UTI, no kidney stones. INTEGUMENT/BREAST: Negative for any muscular injury with mild osteoarthritis.. HEMATOLOGIC/LYMPHATIC: Negative for bleed or purpura. MUSCULOSKELTAL: Negative for Myalgia or arthralgia. NEURLOGICAL: No LOC, Sz or syncope, blurred vision dizziness or abnormality.. BEHAVIORAL/PSYCH: Negative. ENDOCRINE: Negative. Physical examination General Appearance: Alert, cooperative, no distress, appears stated age. No chest pain while resting in bed. No acute distress. Neck HEENT: Supple, no lymphadenopathy, no thyroid enlargement, no carotid bruits. Lungs: Clear to auscultation without crackles or wheezes no rhonchi, no deformity. Chest Wall: Chest wall normal expansion with deep inspiration no tenderness and no deformity was found on exam, no costochondral pain or discomfort. Heart: Regular rate and rhythm, S1, S2 normal, no murmur, rub or gallop. Back: Symmetric, no curvature, ROM normal, no CVA tenderness. Abdomen: Soft, non-tender, bowel sounds active all four quadrants, no masses, no organomegaly. Extremities: Extremities normal, atraumatic, no cyanosis or edema. Pulses: 2+ and symmetric. Skin: Skin color, texture, tugor normal, no rashes or lesions. Neurologic: Alert oriented x3 cranial nerves II through XII intact, no motor deficit, no abnormal balance or gait. Assessment and Plan 1 chest pain and atypical angina: Patient had slight ST depression in the lateral lead despite the negative troponin initially, cardiology consult appreciated. Echocardiogram report pending. Continue heparin drip, possible heart cath tomorrow patient continues to have symptoms. 2 paroxysmal atrial fibrillation. Lopressor 25 mg twice daily started. Patient will be started on Coumadin following catheterization 3 hyperlipidemia: Continue Lipitor 40 mg daily. 4 rheumatoid arthritis: He still on anti-inflammatory agent only no biologic agent this point. 5 hypertension: On losartan 25 g a day. 6 low vitamin D: Still on vitamin D supplement. 7 severe GERD: Patient will be on Pepcid 20 mg daily. 8 DVT prophylaxis: Patient was started on heparin continue to watch for any complication. 9. COVID-19 testing in process. CODE STATUS: Full code. Discharge plan: Home tomorrow Impression and plan of care have been directed as dictated by the signing phys ician. Madelin Gutierrezy nurse practitioner acting as scribe for signing physician. Objective - Vital Signs Vital signs: Vital Signs Temp 98.2 F 12/13/19 03:46 Pulse 74 12/13/19 03:46 Resp 18 12/13/19 03:46 BP 124/66 12/13/19 03:46 Pulse Ox 98 12/13/19 03:46 Intake & Output 12/12/19 12/13/19 12/13/19 18:59 06:59 18:59 Intake Total 69.167 Balance 69.167 Weight 95.2 kg Intake: Intake, IV Titration 69.167 Amount Heparin Sod,Pork in 0.45% 69.167 NaCl 25,000 unit In 0.45 % NaCl 1 250ml.bag @ 10. 754 UNITS/KG/HR 10 mls/hr IV .Q24H [facility] Rx#: [id number] Other: Voiding Method Toilet # Voids 1 - Labs CBC & Chem 7: 12/13/19 08:49 12/12/19 19:34 Labs: Abnormal Lab Results - Last 24 Hours (Table) 12/13/19 Range/Units 02:26 APTT 40.1 H (22.0-30.0) sec
[2019-12-13 15:03] VITALS: BMI 29.2
[2019-12-13] MEDS ORDERED: ATORVASTATIN 40 MG TAB PO SCH (21:00)
[2019-12-13] MEDS: SODIUM CHLORIDE 0.9% 1,000 ML IV SCH (21:01)
[2019-12-14] MEDS: NITROGLYCERIN OINT 1 INCH/GM PACKET TOPICAL SCH (01:46)
[2019-12-14] MEDS: METOPROLOL TARTRATE 25 MG TAB PO SCH (08:52)
[2019-12-14] MEDS: ASPIRIN 81 MG PO SCH (08:52)
[2019-12-14] MEDS: FAMOTIDINE 20 MG TAB PO SCH (08:52)
[2019-12-14] MEDS: LOSARTAN 25 MG TAB PO SCH (08:52)
[2019-12-14] MEDS: MULTIVITAMINS, THERA 1 EACH TAB PO SCH (08:52)
[2019-12-14] MEDS: FOLIC ACID 1 MG TAB PO SCH (08:52)
[2019-12-14] MEDS: CHOLECALCIFEROL 1,000 UNIT TAB PO SCH (08:56)
[2019-12-14 09:21] VITALS: BP 145/79; PULSE 70; RESP 14; TEMP 98.2
--- NOTE | 2019-12-14 09:47 | P.PN ---
Subjective This is a pleasant 74-year-old male past medical history significant for paroxysmal atrial fibrillation status post cardioversion in 2019, hypertension and dyslipidemia. He initially presented to the hospital for exertional chest discomfort that had been going on for the previous 4 weeks. He is seen and examined sitting up in bed in no acute distress. He has had no further symptoms of chest discomfort since arriving at the hospital. He has no shortness of breath, dizziness or palpitations. He is currently in atrial fibrillation with controlled ventricular rate. Blood pressure 145/79 heart rate 70 afebrile maintaining oxygen saturation on room air. Currently maintained on aspirin 81 mg daily, atorvastatin 40 mg daily, losartan 25 mg daily and metoprolol 25 mg twice a day. GENERAL: Well-appearing, well-nourished and in no acute distress. NECK: Supple without JVD or thyromegaly. LUNGS: Breath sounds clear to auscultation bilaterally. Respiration equal and unlabored. No wheezes, rales or rhonchi. HEART: Irregular rate and rhythm with systolic ejection murmur at the base, no rubs or gallops. S1 and S2 heard. EXTREMITIES: Normal range of motion, no edema. No clubbing or cyanosis. Peripheral pulses intact. ASSESSMENT Chest pain, an acute coronary event has been ruled out. Paroxysmal atrial fibrillation Hypertension Dyslipidemia Daily alcohol intake PLAN Initiate Coumadin 5 mg daily. Lengthy discussion had with the patient along with nursing staff and case management regarding the need for long-term anticoag ulation for thromboembolic protection. The cost of Eliquis and Xarelto is too much for the patient and he is agreeable to use Coumadin. Complete alcohol cessation highly recommended. Discontinue aspirin as he had normal coronary arteries in 2018 and no prior history of myocardial infarction. Follow in the office with Dr. Soto in 2 weeks and outpatient PT/INR in 3 days. Nurse Practitioner note has been reviewed, I agree with a documented findings and plan of care. Patient was seen and examined. Objective - Vital Signs Vital signs: Vital Signs Temp 98.2 F 12/14/19 08:45 Pulse 70 12/14/19 08:45 Resp 14 12/14/19 08:45 BP 145/79 12/14/19 08:45 Pulse Ox 97 12/14/19 08:45 Intake & Output 12/13/19 12/14/19 12/14/19 18:59 06:59 18:59 Intake Total 240 Balance 240 Weight 95.2 kg Intake: Oral 240 Other: Voiding Method Toilet Toilet Toilet # Voids 1 1 - Labs CBC & Chem 7: 12/13/19 08:49 12/12/19 19:34 Labs: Abnormal Lab Results - Last 24 Hours (Table) 12/13/19 Range/Units 08:49 Cholesterol 216 H (<200) mg/dL LDL Cholesterol, Calc 109 H (0-99) mg/dL HDL Cholesterol 94 H (40-60) mg/dL
--- NOTE | 2019-12-14 11:30 | P.DS ---
Providers Date of admission: 12/12/19 20:11 Expected date of discharge: 12/14/19 Attending physician: Lee Call Consults: 12/12/19 20:11 Consult Physician Urgent Consulting Provider: Joce Moscoso Consult Reason/Comments: ua Do you want consulting provider notified?: Already Contacted Primary care physician: Romel Jhaveri [place] [facility] Course: 74-year-old male mildly overweight [address] Jhaveri's patient with past medical history of hypertension A. fib and hyperlipidemia who developed to have exertional chest pain on and off this last week become slightly bit worse today was associated with significant dyspnea and shortness of breath diaphoresis nausea without vomiting with mild lightheadedness and slight increased palpitation. Symptoms become slightly bit worse today ended up coming to [facility] department at [facility] where was seen his troponin was negative he is electrolyte did not show any major abnormality d-dimer was elevated EKG showed atrophy fibrillation with ST depression in the lateral lead as a new finding compared to the loss EKG. Patient is already on anticoagulation cardiology were called patient be hospitalized continue to watch his symptoms repeat another EKG in the morning keep following the troponin through the night patient will be going for an echocardiogram and depending on the finding by tomorrow might go for either stress test or heart catheter. Review patient's chart patient apparently had some electrophysiology testing had cardioversion in the past after transesophageal echocardiogram and had a negative heart cath in 2018 consistent with normal coronary artery the time. Patient is still seen cardiology regularly. 12/12: The patient states he had another episode of pressure-type pain in his chest when he got to the bathroom came back to bed during the night. He was seen by cardiology this morning he was recommended for cardiac catheterization and stress test the patient that time refused. After discussion with Dr. Call, patient agrees to undergo heart catheterization. Cardiology is currently planning to continue heparin drip, monitor for episodes of chest pain and if any recurrence, heart catheterization tomorrow. Patient has been hemodynamically stable. Afebrile, pulse ox 98% on room air, blood pressure 124/66, heart rate 74. Troponins have been negative on 3 draws. Triglycerides 64, cholesterol 216 , LDL 109, HDL 94. 12/13: Patient had no further episodes of chest pain. He has been seen by cardiology this morning and cleared for discharge. Plan to start Coumadin which we'll start at 5 mg daily patient to have INR done at cardiology office on Thursday and then weekly. His blood pressure remains on the higher side and losartan will be increased to 50 mg. A blood pressure 155/80, heart rate in the 60s and 70s, pulse ox 97% on room air. Patient to follow-up with Dr. Jhaveri but states he maybe changing to Dr. Pillai as she is located closer to his home and easier to get to office. Patient is requesting PPI for home which will be sent. The patient will be discharged home today in stable condition. Assessment and Plan 1 chest pain, acute coronary syndrome ruled out. 2 paroxysmal atrial fibrillation. 3 hyperlipidemia. 4 rheumatoid arthritis. 5 hypertension. 6 low vitamin D. 7 severe GERD. 8 COVID-19 infection not present. Discharge plan: Home Impression and plan of care have been directed as dictated by the signing physician. Madelin Martinez nurse practitioner acting as scribe for signing physician. Patient Condition at Discharge: Good Plan - Discharge Summary Discharge Rx Participant: No New Discharge Prescriptions: New Warfarin Sodium [Coumadin] 5 mg PO 1800 #30 tablet Atorvastatin [Lipitor] 40 mg PO HS #30 tab Metoprolol Tartrate [Lopressor] 25 mg PO BID #60 tab Famotidine [Pepcid] 20 mg PO DAILY #30 tab Losartan [Cozaar] 50 mg PO DAILY #30 tab Continue Ivor-3 Fatty Acids/Fish Oil [Fish Oil 1,000 mg Softgel] 1 cap PO DAILY Multivitamins, Thera [Multivitamin (formulary)] 1 tab PO DAILY Aspirin 81 mg PO DAILY #0 chew Cholecalciferol (Vitamin D3) [Vitamin D3] 2,000 unit PO DAILY Folic Acid 0.8 mg PO DAILY Discontinued Losartan [Cozaar] 25 mg PO DAILY #30 tab Discharge Medication List Multivitamins, Thera [Multivitamin (formulary)] 1 tab PO DAILY 07/08/18 [History] Ivor-3 Fatty Acids/Fish Oil [Fish Oil 1,000 mg Softgel] 1 cap PO DAILY 07/08/18 [History] Aspirin 81 mg PO DAILY #0 chew 07/09/18 [Rx] Cholecalciferol (Vitamin D3) [Vitamin D3] 2,000 unit PO DAILY 12/12/19 [History] Folic Acid 0.8 mg PO DAILY 12/12/19 [History] Atorvastatin [Lipitor] 40 mg PO HS #30 tab 12/14/19 [Rx] Famotidine [Pepcid] 20 mg PO DAILY #30 tab 12/14/19 [Rx] Losartan [Cozaar] 50 mg PO DAILY #30 tab 12/14/19 [Rx] Metoprolol Tartrate [Lopressor] 25 mg PO BID #60 tab 12/14/19 [Rx] Warfarin Sodium [Coumadin] 5 mg PO 1800 #30 tablet 12/14/19 [Rx] Follow up Appointment(s)/Referral(s): Romel Jhaveri MD [Primary Care Provider] - 1 Week Keyshawn Soto MD [STAFF PHYSICIAN] - 12/19/19 2:00 pm Ambulatory/Diagnostic Orders: Prothrombin Time INR [LAB.AMB] Location: None Selected Discharge Disposition: HOME SELF-CARE
--- NOTE | 2019-12-14 12:34 | ECHOF ---
Referral Reason:cp MEASUREMENTS -------- HEIGHT: 180.3 cm WEIGHT: 94.8 kg BP: RVIDd: 3.4 cm (< 3.3) IVSd: 1.2 cm (0.6 - 1.1) LVIDd: 3.4 cm (3.9 - 5.3) LVPWd: 1.5 cm (0.6 - 1.1) IVSs: 1.5 cm LVIDs: 2.2 cm LVPWs: 1.7 cm LAESV Index (A-L): 37.24 ml/m Ao Diam: 3.6 cm (2.0 - 3.7) AV Cusp: 2.2 cm (1.5 - 2.6) LA Diam: 4.4 cm (2.7 - 3.8) MV EXCURSION: 22.907 mm (> 18.000) MV EF SLOPE: 46 mm/s (70 - 150) EPSS: 1.2 cm MV E Louis: 1.29 m/s MV DecT: 204 ms MV A Louis: 0.43 m/s MV E/A Ratio: 3.01 RAP: 5.00 mmHg RVSP: 9.79 mmHg FINDINGS -------- Atrial fibrillation. This was a technically good study. The left ventricular size is normal. There is mild concentric left ventricular hypertrophy. Overa ll left ventricular systolic function is normal with, an EF between 55 - 60 %. The right ventricle is mildly enlarged. LA is moderately dilated 34-39 ml/m2 The right atrial size is normal. The aortic valve is trileaflet and appears structurally normal. The mitral valve is normal. Mild mitral regurgitation is present. The tricuspid valve appears structurally normal. Mild tricuspid regurgitation present. Right vent ricular systolic pressure is normal at < 35 mmHg. There is no pulmonic regurgitation present. The aortic root size is normal. IVC Not well visulized. There is no pericardial effusion. CONCLUSIONS -------- 1. Atrial fibrillation. 2. This was a technically good study. 3. The left ventricular size is normal. 4. There is mild concentric left ventricular hypertrophy. 5. Overall left ventricular systolic function is normal with, an EF between 55 - 60 %. 6. The right ventricle is mildly enlarged. 7. LA is moderately dilated 34-39 ml/m2 8. The right atrial size is normal. 9. The aortic valve is trileaflet and appears structurally normal. 10. The mitral valve is normal. 11. Mild mitral regurgitation is present. 12. The tricuspid valve appears structurally normal. 13. Mild tricuspid regurgitation present. 14. Right ventricular systolic pressure is normal at < 35 mmHg. 15. There is no pulmonic regurgitation present. 16. The aortic root size is normal. 17. IVC Not well visulized. 18. There is no pericardial effusion. [employer]: Esther Modi RDCS
[2019-12-14] MEDS ORDERED: WARFARIN 5 MG TAB PO SCH (18:00)
== END 2019-12-14 10:49 | disposition home or self-care (01) ==
LOC: EC 19:10 → 1SOBS 20:11
PROVIDERS: ADMIT Internal Medicine Geriatric Medicine; ATTEND Internal Medicine Geriatric Medicine
DX: R07.89 Other chest pain (principal); I48.0 Paroxysmal atrial fibrillation; R61 Generalized hyperhidrosis; R79.89 Other specified abnormal findings of blood chemistry; R11.0 Nausea; I10 Essential (primary) hypertension; E78.5 Hyperlipidemia, unspecified; M06.9 Rheumatoid arthritis, unspecified; K21.9 Gastro-esophageal reflux disease without esophagitis; F10.10 Alcohol abuse, uncomplicated; E55.9 Vitamin D deficiency, unspecified; E66.3 Overweight; Z68.29 Body mass index [BMI] 29.0-29.9, adult; Z03.818 Encounter for observation for suspected exposure to other biological agents ruled out; Z79.82 Long term (current) use of aspirin; Z79.899 Other long term (current) drug therapy; Z88.0 Allergy status to penicillin; Z87.891 Personal history of nicotine dependence; Z98.52 Vasectomy status; Z98.890 Other specified postprocedural states; Z82.0 Family history of epilepsy and other diseases of the nervous system; Z82.49 Family history of ischemic heart disease and other diseases of the circulatory system; Z80.9 Family history of malignant neoplasm, unspecified
CPT/HCPCS: 96366 ×3; 96376 ×2; 96365; 99291; 36415; 93005 ×2; 93306; 85379; 83880; 80061; 80053; 83735; 84484 ×2; 85025; 85049; 85610; 85730 ×2; 71046; G0378 ×3; U0003; J1644 ×3

== ENCOUNTER → 2021-02-14 | Outpatient (CLI) | payer MEDICARE ==
[2021-02-14 17:29] LABS: Chol/HDL Ratio 2.17
== END | disposition home or self-care (01) ==
LOC: LABWHC1 10:06
PROVIDERS: ATTEND Internal Medicine Cardiovascular Disease
DX: E78.2 Mixed hyperlipidemia (principal)
CPT/HCPCS: 36415; 80061; 84450; 84460

== ENCOUNTER → 2022-03-27 | Outpatient (CLI) | payer MEDICARE ==
[2022-03-27 20:00] LABS: Triglycerides 40.7 mg/dL (0.00-149.00)
[2022-03-27 20:11] LABS: Chol/HDL Ratio 1.8 Ratio; LDL Cholesterol,Direct Reflex 64.6 mg/dL (0.00-129.00)
== END | disposition home or self-care (01) ==
LOC: LABWHC1 11:17
PROVIDERS: ATTEND Internal Medicine Cardiovascular Disease
DX: E78.2 Mixed hyperlipidemia (principal)
CPT/HCPCS: 36415; 80061; 83721; 84450; 84460

== ENCOUNTER → 2024-04-11 | Outpatient (CLI) | payer MEDICARE ==
[2024-04-11 15:44] LABS: ALT 30 U/L (10-49); AST 36 U/L (14-35); Chol/HDL Ratio 1.59 Ratio; LDL Cholesterol,Calculated 51.5 mg/dL (0.0-131.0); VLDL Calculation 8.54 mg/dL (5.00-40.00)
== END | disposition home or self-care (01) ==
LOC: LABWHC1 11:36
PROVIDERS: ATTEND Internal Medicine Cardiovascular Disease
DX: E78.2 Mixed hyperlipidemia (principal)
CPT/HCPCS: 36415; 80061; 84450; 84460